=== PATIENT | female | born 1980 | race African-American/Black ===

== ENCOUNTER 2019-09-08 05:41 | Emergency (ER) | payer OTHER, SELFPAY ==
--- OUTSIDE RECORDS SUMMARY | 2019-09-08 05:43 | XMS REPORT ---
:1980 [facility] Address [address] Jung. [address] [place] [id number] Care Team Providers Name Role Phone Unavailable Unavailable Unavailable Problems This patient has no known problems. Allergies, Adverse Reactions, Alerts This patient has no known allergies or adverse reactions. Medications This patient has no known medications.
--- OUTSIDE RECORDS SUMMARY | 2019-09-08 05:43 | XMS REPORT | Summary of Care ---
:1980 Author Organization [facility] - Health Address [address] [place] [id number] Care Team Providers Name Role Phone Florentino Felix MD Primary Care Provider Reason for Visit Reason Comments Ear Pain Left Auth/Cert Status Reason Specialty Diagnoses / Referred By Referred To Procedures Contact Contact [facility] [address] [place] [address] [place] [address] Encounter Details Date Type Department Care Team Description 02/26/2019 Emergency [facility] Soledad Gilman, Acute suppurative otitis media of left ear without spontaneous rupture of tympanic membrane, recurrence not specified (Primary Dx); Department [employer]NA[employer] Otitis externa of left ear, unspecified chronicity, unspecified type [address] [place] [address] [address] [place] [address] [id number] [place], [place] [id number] Allergies No Known Allergiesdocumented as of this encounter (statuses as of 02/26/2019) Medications Medication Sig Dispensed Refills Start Date End Date Status amoxicillin 500 mg Take 1 30 capsule 0 02/26/2019 Active capsuleIndications: capsule by 9 Acute suppurative mouth 3 otitis media of left (three) times ear without daily for 10 spontaneous rupture days. of tympanic membrane, recurrence not specified ofloxacin 0.3 % otic Place 4 Drops 1 Bottle 0 02/26/2019 Active dropsIndications: in left ear 3 Otitis externa of (three) times left ear, unspecified daily. chronicity, unspecified type pantoprazole Take 1 Tab by 30 Tab 0 09/06/2015 Discontinued (PROTONIX) 40 mg EC mouth daily. 9 tablet cyclobenzaprine 5 mg Take 1 tablet 30 tablet 0 01/23/2017 Discontinued tablet by mouth 3 9 (three) times daily. traMADOL (ULTRAM) 50 Take 1 tablet 20 tablet 0 01/23/2017 Discontinued mg tablet by mouth 9 every 6 (six) hours as needed for Pain (scale 4-6). documented as of this encounter (statuses as of 02/26/2019) Active Problems No known active problemsdocumented as of this encounter (statuses as of 2018) Social History Tobacco Use Types Packs/Day Years Used Date Never Assessed Sex Assigned at Date Recorded Not on file Job Start Date Occupation Industry Not on file Not on file Not on file Travel History Travel Start Travel End No recent travel history available. documented as of this encounter Last Filed Vital Signs Vital Sign Reading Time Taken Comments Blood Pressure 134/89 02/26/2019 3:27 PM CDT Pulse 86 02/26/2019 3:27 PM CDT Temperature 36.7 C (98 F) 02/26/2019 3:27 PM CDT Respiratory Rate 18 02/26/2019 3:27 PM CDT Oxygen Saturation 99% 02/26/2019 3:27 PM CDT Inhaled Oxygen Concentration - - Weight 66.8 kg (147 lb 4.8 oz) 02/26/2019 3:27 PM CDT Height 162.6 cm (5' 4") 02/26/2019 3:27 PM CDT Body Mass Index 25.28 02/26/2019 3:27 PM CDT documented in this encounter Discharge Instructions Soledad Parsons NP - 02/26/2019Diagnosis: Left ear infection Do not use q-tips Avoid getting water in ear Prescriptions for amoxicillin and ofloxacin ear drops sent to [facility] pharmacy Follow up in the clinic May use ibuprofen or naprosyn for pain control documented in this encounter Plan of Treatment Health Maintenance Due Date Last Done Comments VARICELLA VACCINES (1 of 2 - 13+ 1994 2-dose series) DTaP,Tdap,and Td Vaccines (1 - 02/14/2000 Tdap) PAP SMEAR 2002 INFLUENZA VACCINE (#1) 2019 PNEUMOCOCCAL 0-64 YEARS COMBINED Aged Out No longer eligible based on SERIES patient's age to complete this topic documented as of this encounter Procedures Procedure Name Priority Date/Time Associated Diagnosis Comments NOTICE OF PRIVACY Routine 02/26/2019 3:17 PM CDT PRACTICES CONSENT/REFUSAL FOR Routine 02/26/2019 3:17 PM CDT DIAGNOSIS AND TREATMENT documented in this encounter Results Not on filedocumented in this encounter Visit Diagnoses Diagnosis Acute suppurative otitis media of left ear without spontaneous rupture of tympanic membrane, recurrence not specified - Primary Otitis externa of left ear, unspecified chronicity, unspecified type documented in this encounter Administered Medications Medication Order MAR Action Action Date Dose Rate Site ibuprofen (IBU) tablet 600 mg Given 02/26/2019 4:21 PM CDT 600 mg 600 mg, Oral, ONCE, 1 dose, Fri02/26/19 at 1700, LUIS ANGEL documented in this encounter
[2019-09-08 06:10] LABS: Absolute Lymphocytes (CBC) 0.7 K/uL (0.7-4.9); Basophils % 0.4 % (0-1.3); Hematocrit 39.7 % (36.0-45.0); MPV 8.8 fL (7.6-11.3); RBC Red Blood Cell Count 4.35 M/uL (3.86-4.86)
[2019-09-08] MEDS ORDERED: LORAZEPAM 1 MG TABLET ONE ×2 (06:54→07:27)
[2019-09-08 06:56] LABS: ALT/SGPT 48 U/L (12-78); AST/SGOT 58 U/L (15-37); Albumin 4.5 g/dL (3.4-5.0); Alkaline Phosphatase 40 U/L (45-117); BUN Blood Urea Nitrogen 11 mg/dL (7-18); Bicarbonate 21 mmol/L (21-32); Bilirubin Direct 0.2 mg/dL (0-0.2); Bilirubin Total 0.7 mg/dL (0.2-1.0); Glucose Level 122 mg/dL (74-106); Potassium 3.8 mmol/L (3.5-5.1); Protein, Total 8.8 g/dL (6.4-8.2); Sodium Level 139 mmol/L (136-145)
[2019-09-08 07:17] LABS: Blood Morphology Comment NOT SEEN (NOT SEEN); Platelet Estimate ADEQ; White Blood Cell Scan OK
[2019-09-08] MEDS ORDERED: NA CHLORIDE 0.9% 2,000 ML ONE (08:01)
--- NOTE | 2019-09-08 11:28 | EKG ---
Test Date: 2019-09-08 Test Time: 06:01:27 Maintenance Pipefitter: JAYME MEASUREMENT RESULTS: Intervals: Rate: 120 RI: 120 QRSD: 56 QT: 334 QTc: 472 [place]: P: 72 RI: 120 QRS: 61 T: 53 INTERPRETIVE STATEMENTS: Sinus tachycardia Anteroseptal infarct, age undetermined Abnormal ECG Compared to ECG 12/09/2014 09:09:14 Myocardial infarct finding now present Sinus rhythm no longer present Sinus arrhythmia no longer present Electronically Signed On 09-08-19 11:27:31 CDT by Hakeem Martin
[2019-09-08 11:57] LABS: Barbiturates NEGATIVE (NEGATIVE); Benzodiazepines NEGATIVE (NEGATIVE); Cocaine NEGATIVE (NEGATIVE); METHAMPHETAM NEGATIVE (NEGATIVE); Methadone NEGATIVE (NEGATIVE); Opiates NEGATIVE (NEGATIVE); Phencyclidine NEGATIVE (NEGATIVE); THC Cannibis POSITIVE (NEGATIVE)
[2019-09-08 13:05] LABS: Urine Blood TRACE (NEG); Urine Glucose NEGATIVE (NEG); Urine Protein 1+ (NEG); Urine Specific Gravity >1.030 (1.005-1.030)
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
[2019-09-08 16:53] VITALS: TEMP 98.1
[2019-09-08 17:02] VITALS: O2SAT 99
[2019-09-08 17:03] VITALS: BP 144/95
== END 2019-09-08 16:38 ==
LOC: ER 05:41
DX: F20.9 Schizophrenia, unspecified (principal); R44.3 Hallucinations, unspecified; F12.90 Cannabis use, unspecified, uncomplicated; Z72.89 Other problems related to lifestyle; F15.90 Other stimulant use, unspecified, uncomplicated
CPT/HCPCS: 96361; 93005; 85025; 80048; 36415; 80320; 80329 ×2; 81025; 85610; 80076; 80307 ×8; 85730; 81003; 96360; 99285; J7030

== ENCOUNTER 2020-02-04 17:01 | Emergency (ER) | payer OTHER ==
--- OUTSIDE RECORDS SUMMARY | 2020-02-04 17:02 | XMS REPORT | Continuity of Care Document ---
:1980 Author Organization [facility] Address [address] [place] [address] Care Team Providers Name Role Phone Kelsie Gilman NP Attending Clinician Problems This patient has no known problems. Allergies, Adverse Reactions, Alerts This patient has no known allergies or adverse reactions. Medications This patient has no known medications. Procedures This patient has no known procedures. Encounters Start End Encounter Admission Attending Care Care Encounter Source Date/Time Date/Time Type Type Clinicians Facility Department ID 2019-02-26 2019-02-26 Emergency [facility] [id number] 15:30:21 16:52:00 Soledad Tamayo [id number] Chloe [id number] [place] [id number] Results This patient has no known results.
[2020-02-04] MEDS ORDERED: ONDANSETRON 4 MG/2 ML VIAL ONE (17:45)
[2020-02-04] MEDS ORDERED: NA CHLORIDE 0.9% 1,000 ML ONE (17:46)
[2020-02-04] MEDS ORDERED: KETOROLAC 30 MG/ML INJ ONE (17:46)
[2020-02-04 18:09] LABS: Absolute Lymphocytes (CBC) 1.3 K/uL (0.7-4.9); Basophils % 0.8 % (0-1.3); Hematocrit 38.4 % (36.0-45.0); Lymphocytes % 13.9 % (15.3-44.8); MPV 8.5 fL (7.6-11.3)
[2020-02-04 18:13] LABS: Urine Blood NEGATIVE (NEG); Urine Glucose NEGATIVE (NEG); Urine Protein NEGATIVE (NEG); Urine pH 5.5 (5.0-7.0)
[2020-02-04 18:26] LABS: BUN Blood Urea Nitrogen 10 mg/dL (7-18); Bicarbonate 21 mmol/L (21-32); Glucose Level 114 mg/dL (74-106); Potassium 3.7 mmol/L (3.5-5.1); Sodium Level 138 mmol/L (136-145)
--- NOTE | 2020-02-04 18:38 | EDPHYS ---
Physician Documentation [facility] Name: Alycia Veronica Age: 39 yrs Sex: Female : 1980 Arrival Date: 02/04/2020 Time: 17:05 Bed 19 Private MD: ED Physician Zeferino Carrera HPI: 02/03 18:40 This 39 yrs old Black Female presents to ER via [employer] with complaints of kb Abdominal Pain. 18:40 The patient presents with abdominal pain that is diffuse. Onset: The symptoms/episode kb began/occurred yesterday. The symptoms do not radiate. Associated signs and symptoms: Pertinent positives: nausea, Pertinent negatives: constipation, diarrhea, fever, vomiting. The symptoms are described as constant. Modifying factors: The symptoms are alleviated by nothing, the symptoms are aggravated by nothing. Severity of pain: At its worst the pain was moderate in the emergency department the pain is unchanged. The patient has not experienced similar symptoms in the past. The patient has not recently seen a physician. Pt reports abd pain since last night, but got worse today after a "traumatic event." Pt in [facility] custody. 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 - Social history:: Smoking status: Patient denies any tobacco usage or history of. ROS: 18:39 Constitutional: Negative for fever, chills, and weight loss, Cardiovascular: Negative kb for chest pain, palpitations, and edema, Respiratory: Negative for shortness of breath, cough, wheezing, and pleuritic chest pain, Back: Negative for injury and pain, : Negative for injury, bleeding, discharge, and swelling, MS/Extremity: Negative for injury and deformity, Skin: Negative for injury, rash, and discoloration, Neuro: Negative for headache, weakness, numbness, tingling, and seizure. 18:39 Abdomen/GI: Positive for abdominal pain, nausea, Negative for vomiting, diarrhea, constipation. Exam: 18:39 Constitutional: This is a well developed, well nourished patient who is awake, alert, kb and in no acute distress. Head/Face: Normocephalic, atraumatic. Chest/axilla: Normal chest wall appearance and motion. Nontender with no deformity. No lesions are appreciated. Cardiovascular: Regular rate and rhythm with a normal S1 and S2. No gallops, murmurs, or rubs. Normal PMI, no JVD. No pulse deficits. Respiratory: Lungs have equal breath sounds bilaterally, clear to auscultation and percussion. No rales, rhonchi or wheezes noted. No increased work of breathing, no retractions or nasal flaring. Back: No spinal tenderness. No costovertebral tenderness. Full range of motion. Skin: Warm, dry with normal turgor. Normal color with no rashes, no lesions, and no evidence of cellulitis. MS/ Extremity: Pulses equal, no cyanosis. Neurovascular intact. Full, normal range of motion. Neuro: Awake and alert, GCS 15, oriented to person, place, time, and situation. Cranial nerves II-XII grossly intact. Motor strength 5/5 in all extremities. Sensory grossly intact. Cerebellar exam normal. Normal gait. 18:39 Abdomen/GI: Inspection: abdomen appears normal, Bowel sounds: normal, in all quadrants, Palpation: soft, in all quadrants, mild abdominal tenderness, in the left lower quadrant. Vital Signs: 17:08 BP 147 / 95; Pulse 100; Resp 17; Temp 98.7; Pulse Ox 99% ; Weight 63.5 kg; Height 5 ft. bp 5 in. (165.10 cm); 18:48 BP 130 / 79; Pulse 93; Resp 16; Pulse Ox 99% ; bp 17:08 Body Mass Index 23.30 (63.50 kg, 165.10 cm) bp MDM: 17:06 Patient medically screened. kb 18:37 Data reviewed: vital signs, nurses notes. Data interpreted: Pulse oximetry: on room air kb is 99 %. Interpretation: normal. Counseling: I had a detailed discussion with the patient and/or guardian regarding: the historical points, exam findings, and any diagnostic results supporting the discharge/admit diagnosis, lab results, the need for outpatient follow up, a family practitioner, to return to the emergency department if symptoms worsen or persist or if there are any questions or concerns that arise at home. Refusal of service: The patient/guardian displays adequate decision making capability and despite a detailed discussion of alternatives, benefits, risks, and consequences refuses: CT Scan. ED course: Pt refuses CT scan. Wants to leave. . 02/03 17:13 Order name: Basic Metabolic Panel 02/03 17:13 Order name: CBC with Diff kb 02/03 18:01 Order name: Urine Dipstick--Ancillary (enter results) 02/03 18:01 Order name: Urine --Ancillary (enter results) eb 02/03 18:14 Order name: Urine --Ancillary; Complete Time: 18:14 EDIL 02/03 18:14 Order name: Urine Dipstick-Ancillary; Complete Time: 18:14 EDIL 02/03 17:13 Order name: IV Saline Lock; Complete Time: 18:04 kb 02/03 17:13 Order name: Labs collected and sent; Complete Time: 18:04 kb 02/03 17:34 Order name: CT Abd/Pelvis - IV Contrast Only 02/03 18:27 Order name: Basic Metabolic Panel; Complete Time: 18:28 EDIL 02/03 18:28 Order name: CBC with Automated Diff; Complete Time: 18:28 EDIL 02/03 17:34 Order name: Urine Dipstick-Ancillary (obtain specimen); Complete Time: 18:04 kb 02/03 17:34 Order name: Urine Test (obtain specimen); Complete Time: 18:05 kb Administered Medications: 17:50 Drug: NS 0.9% 1000 ml Route: IV; Rate: 1000 ml; Site: right antecubital; bp 18:50 Follow up: IV Status: Completed infusion; IV Intake: 1000ml bp 17:50 Drug: TORadol - Ketorolac 15 mg Route: IVP; Site: right forearm; bp 18:49 Follow up: Response: No adverse reaction bp 17:50 Drug: Zofran (Ondansetron) 4 mg Route: IVP; Site: right forearm; bp 18:49 Follow up: Response: No adverse reaction bp Disposition: 02/04/20 18:37 Discharged to Law Enforcement. Impression: Lower abdominal pain, unspecified. - Condition is Stable. - Discharge Instructions: Abdominal Pain, Adult, [id number]. - Medication Reconciliation Form, Thank You Letter, Antibiotic Education, Prescription Opioid Use form. - Follow up: Emergency Department; When: As needed; Reason: Worsening of condition. Follow up: Private Physician; When: 2 - 3 days; Reason: Recheck today's complaints, Continuance of care, Re-evaluation by your physician. Addendum: 02/07/2020 11:13 Co-signature as Attending Physician, Zeferino Carrera MD I agree with the assessment and k dr plan of care. Signatures: Dispatcher [employer] EDMS Kamryn Shearer, YARD INSPECTOR-C YARD INSPECTOR-Ckb Zeferino Carrera MD MD [facility] Abraham Bennett, RN RN bp Corrections: (The following items were deleted from the chart) 02/03 18:37 18:37 02/04/2020 18:37 Discharged to Home. Impression: Lower abdominal pain, kb unspecified. Condition is Stable. Forms are Medication Reconciliation Form, Thank You Letter, Antibiotic Education, Prescription Opioid Use. Follow up: Emergency Department; When: As needed; Reason: Worsening of condition. Follow up: Private Physician; When: 2 - 3 days; Reason: Recheck today's complaints, Continuance of care, Re-evaluation by your physician. kb 18:40 18:39 Abdomen/GI: Inspection: abdomen appears normal, Bowel sounds: normal, in all kb quadrants, Palpation: soft, in all quadrants, moderate abdominal tenderness, in the left lower quadrant, kb 18:51 18:37 02/04/2020 18:37 Discharged to Law Enforcement. Impression: Lower abdominal pain, bp unspecified. Condition is Stable. Forms are Medication Reconciliation Form, Thank You Letter, Antibiotic Education, Prescription Opioid Use. Follow up: Emergency Department; When: As needed; Reason: Worsening of condition. Follow up: Private Physician; When: 2 - 3 days; Reason: Recheck today's complaints, Continuance of care, Re-evaluation by your physician. kb
--- NOTE | 2020-02-04 18:38 | ER ---
Nurse's Notes [facility] Name: Alycia Veronica Age: 39 yrs Sex: Female : 1980 Arrival Date: 02/04/2020 Time: 17:05 Bed 19 Private MD: Diagnosis: Lower abdominal pain, unspecified Presentation: 02/03 17:08 Chief complaint: Patient states: ABDOMINAL PAIN WITHOUT VOMITING OR DIARRHEA. bp Coronavirus screen: At this time, the client does not indicate any symptoms associated with coronavirus-19. Ebola Screen: No symptoms or risks identified at this time. Initial Sepsis Screen: Does the patient meet any 2 criteria? HR > 90 bpm. No. Patient's initial sepsis screen is negative. Does the patient have a suspected source of infection? No. Patient's initial sepsis screen is negative. Risk Assessment: Do you want to hurt yourself or someone else? Patient reports no desire to harm self or others. Onset of symptoms is unknown. 17:08 Method Of Arrival: Law Enforcement: [place] bp 17:08 Acuity: MELISSA 3 bp Triage Assessment: 17:12 General: Appears in no apparent distress. uncomfortable, obese, Behavior is bp cooperative, appropriate for age, agitated, anxious. Pain: Complains of pain in abdomen. EENT: No deficits noted. Neuro: No deficits noted. Cardiovascular: No deficits noted. Respiratory: No deficits noted. GI: Reports lower abdominal pain, upper abdominal pain, Patient currently denies diarrhea, vomiting. : No signs and/or symptoms were reported regarding the genitourinary system. Derm: No deficits noted. Musculoskeletal: No deficits noted. 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 - Social history:: Smoking status: Patient denies any tobacco usage or history of. Screenin:10 Abuse screen: Denies threats or abuse. Denies injuries from another. Nutritional bp screening: No deficits noted. Tuberculosis screening: No symptoms or risk factors identified. Fall Risk None identified. Assessment: 17:10 General: SEE TRIAGE NOTE. bp 18:03 Reassessment: PT CRYING/AGITATED WITH PD. IVF INFUSING. bp 18:36 Reassessment: PT INCREASINGLY LOUD AND AGITATED WITH PD AND STAFF, REFUSING CARE, bp SHOUTING "IF THEY ANY BLACK PEOPLE OUT THERE, HELP ME. BLACK LIVES MATTER.". 18:47 Reassessment: PT CONTINUING TO BE LOUD AND THREATENING TO STAFF AND PD, D/C WITH PD. bp Vital Signs: 17:08 BP 147 / 95; Pulse 100; Resp 17; Temp 98.7; Pulse Ox 99% ; Weight 63.5 kg; Height 5 ft. bp 5 in. (165.10 cm); 18:48 BP 130 / 79; Pulse 93; Resp 16; Pulse Ox 99% ; bp 17:08 Body Mass Index 23.30 (63.50 kg, 165.10 cm) bp ED Course: 17:05 Patient arrived in ED. iw 17:06 Kam[facility] She[facility]C [facility] kb 17:06 Zeferino Carrera MD is Attending Physician. kb 17:07 Abraham Bennett, BIJAL is Primary Nurse. bp 17:10 Patient has correct armband on for positive identification. Placed in gown. Bed in low bp position. Call light in reach. Side rails up X2. 17:12 Triage completed. bp 17:12 Arm band placed on. bp 17:37 Radiology exam delayed due to test not completed at this time. vm2 17:42 Radiology exam delayed due to IV insertion attempt and/or patient not having vm2 appropriate IV at this time. 17:50 Inserted saline lock: 20 gauge in right antecubital area, using aseptic technique. bp Blood collected. 18:47 No provider procedures requiring assistance completed. IV discontinued, intact, bp bleeding controlled, No redness/swelling at site. Pressure dressing applied. Administered Medications: 17:50 Drug: NS 0.9% 1000 ml Route: IV; Rate: 1000 ml; Site: right antecubital; bp 18:50 Follow up: IV Status: Completed infusion; IV Intake: 1000ml bp 17:50 Drug: TORadol - Ketorolac 15 mg Route: IVP; Site: right forearm; bp 18:49 Follow up: Response: No adverse reaction bp 17:50 Drug: Zofran (Ondansetron) 4 mg Route: IVP; Site: right forearm; bp 18:49 Follow up: Response: No adverse reaction bp Intake: 18:50 IV: 1000ml; Total: 1000ml. bp Outcome: 18:37 Discharge ordered by MD. connelly 18:47 Discharged to Law Enforcement bp 18:47 Condition: stable 18:47 Discharge instructions given to police, Instructed on discharge instructions, follow up and referral plans. Demonstrated understanding of instructions, follow-up care. 18:48 Discharged to Law Enforcement iw 18:48 Condition: good 18:51 Patient left the ED. bp Signatures: Kamryn Shearer, PAULINE-C AIRCRAFT INSTRUMENT MECHANIC-Aimee Spicer, RN RN Mari[facility] Abraham Bennett, RN RN bp
[2020-02-04 18:58] VITALS: TEMP 98.7; O2SAT 99
[2020-02-04 19:00] VITALS: BP 130/79
== END 2020-02-04 18:51 ==
LOC: ER 17:01
DX: R10.30 Lower abdominal pain, unspecified (principal); R11.0 Nausea; I10 Essential (primary) hypertension
CPT/HCPCS: 96361; 85025; 80048; 36415; 81025; 81003; 96375; 96374; 99283; J7030; J2405

== ENCOUNTER 2020-10-27 02:41 | Emergency (ER) | payer OTHER, SELFPAY ==
--- OUTSIDE RECORDS SUMMARY | 2020-10-27 02:43 | XMS REPORT | Continuity of Care Document ---
:1980 Author Organization [facility] t Address [address] [place] [address] Care Team Providers Name Role Phone Kelsie Gilman NP Attending Clinician Doctor Unassigned, Name Attending Clinician Unavailable Problems This patient has no known problems. Allergies, Adverse Reactions, Alerts This patient has no known allergies or adverse reactions. Medications This patient has no known medications. Procedures This patient has no known procedures. Encounters Start End Encounter Admission Attending Care Care Encounter Source Date/Time Date/Time Type Type Clinicians Facility Department ID 2020-10-24 2020-10-24 Emergency [facility] [id number] 11:11:00 15:37:00 Soledad Tamayo [id number] [place] [id number] [place] [id number] 2020-10-24 2020-10-24 Orders Doctor PELAYO [id number] 00:00:00 00:00:00 Only Unassigned, [place] [id number] [place] [facility] [id number] 2019-02-26 2019-02-26 Emergency [facility] [id number] 15:30:21 16:52:00 Soledad Tamayo [id number] [place] [id number] [place] [address] [phone] [id number] Results This patient has no known results.
[2020-10-27 05:10] LABS: Barbiturates NEGATIVE (NEGATIVE); Benzodiazepines NEGATIVE (NEGATIVE); Cocaine NEGATIVE (NEGATIVE); METHAMPHETAM NEGATIVE (NEGATIVE); Methadone NEGATIVE (NEGATIVE); Opiates NEGATIVE (NEGATIVE); Phencyclidine NEGATIVE (NEGATIVE); THC Cannibis POSITIVE (NEGATIVE)
[2020-10-27 05:19] LABS: Absolute Lymphocytes (CBC) 1.6 K/uL (0.7-4.9); Basophils % 0.7 % (0-1.3); Hematocrit 40.6 % (36.0-45.0); MPV 9.2 fL (7.6-11.3); RBC Red Blood Cell Count 4.35 M/uL (3.86-4.86)
[2020-10-27 05:25] LABS: Protime INR 0.95
[2020-10-27 05:51] LABS: ALT/SGPT 35 U/L (12-78); AST/SGOT 25 U/L (15-37); Albumin 4.4 g/dL (3.4-5.0); Alkaline Phosphatase 42 U/L (45-117); BUN Blood Urea Nitrogen 12 mg/dL (7-18); Bicarbonate 26 mmol/L (21-32); Bilirubin Direct 0.1 mg/dL (0-0.2); Bilirubin Total 0.6 mg/dL (0.2-1.0); Glucose Level 133 mg/dL (74-106); Potassium 3.2 mmol/L (3.5-5.1); Protein, Total 8.1 g/dL (6.4-8.2); Sodium Level 138 mmol/L (136-145)
--- NOTE | 2020-10-27 10:28 | EDPHYS ---
Physician Documentation [facility] Name: Alycia Veronica Age: 40 yrs Sex: Female : 1980 Arrival Date: 10/27/2020 Time: 02:51 Bed 16 Private MD: ED Physician Tristin Angel HPI: 10/27 05:41 This 40 yrs old Black Female presents to ER via Ambulatory with complaints of mental mh7 issues. 05:41 The patient presents to the emergency department with psychosis, has experienced mh7 auditory hallucinations. 05:42 Onset: The symptoms/episode began/occurred 4 day(s) ago. Past psychiatric history: mh7 Prior diagnosis: bipolar disorder, schizophrenia. Associated signs and symptoms: Pertinent positives; hallucinations, Pertinent negatives: abdominal pain, anxiety, chest pain, chills, delusions, depression, fever, headache, homicidal ideation, nausea, night sweats, palpitations, paranoia, shortness of breath, substance abuse, suicide ideation, tremor, vomiting. Severity of symptoms: At their worst the symptoms were moderate 3 day(s) ago, in the emergency department the symptoms are unchanged. The patient has experienced similar episodes in the past, several times. Historical: - Allergies: 03:11 Unable to obtain; jb4 - Home Meds: 03:11 Unable to obtain [Active]; jb4 - PMHx: 03:11 Anxiety; Bipolar disorder; Hypertension; Schizophrenia; jb4 - PSHx: 03:11 None; jb4 - Immunization history:: Adult Immunizations unknown. - Social history:: Smoking status: Patient reports the use of cigarette tobacco products, smokes one pack cigarettes per day. Patient uses alcohol, Patient/guardian denies using street drugs. ROS: 05:42 Constitutional: Negative for fever, chills, and weight loss, Eyes: Negative for injury, mh7 pain, redness, and discharge, ENT: Negative for injury, pain, and discharge, Neck: Negative for injury, pain, and swelling, Cardiovascular: Negative for chest pain, palpitations, and edema, Respiratory: Negative for shortness of breath, cough, wheezing, and pleuritic chest pain, Abdomen/GI: Negative for abdominal pain, nausea, vomiting, diarrhea, and constipation, Back: Negative for injury and pain, : Negative for injury, bleeding, discharge, and swelling, MS/Extremity: Negative for injury and deformity, Skin: Negative for injury, rash, and discoloration, Allergy/Immunology: Negative for hives, rash, and allergies, Endocrine: Negative for neck swelling, polydipsia, polyuria, polyphagia, and marked weight changes, Hematologic/Lymphatic: Negative for swollen nodes, abnormal bleeding, and unusual bruising. Exam: 05:42 Constitutional: This is a well developed, well nourished patient who is awake, alert, mh7 and in no acute distress. Head/Face: Normocephalic, atraumatic. Eyes: Pupils equal round and reactive to light, extra-ocular motions intact. Lids and lashes normal. Conjunctiva and sclera are non-icteric and not injected. Cornea within normal limits. Periorbital areas with no swelling, redness, or edema. Neck: Trachea midline, no thyromegaly or masses palpated, and no cervical lymphadenopathy. Supple, full range of motion without nuchal rigidity, or vertebral point tenderness. No Meningismus. Chest/axilla: Normal chest wall appearance and motion. Nontender with no deformity. No lesions are appreciated. Cardiovascular: Regular rate and rhythm with a normal S1 and S2. No gallops, murmurs, or rubs. Normal PMI, no JVD. No pulse deficits. Respiratory: Lungs have equal breath sounds bilaterally, clear to auscultation and percussion. No rales, rhonchi or wheezes noted. No increased work of breathing, no retractions or nasal flaring. Abdomen/GI: Soft, non-tender, with normal bowel sounds. No distension or tympany. No guarding or rebound. No evidence of tenderness throughout. Back: No spinal tenderness. No costovertebral tenderness. Full range of motion. Skin: Warm, dry with normal turgor. Normal color with no rashes, no lesions, and no evidence of cellulitis. MS/ Extremity: Pulses equal, no cyanosis. Neurovascular intact. Full, normal range of motion. Neuro: Awake and alert, GCS 15, oriented to person, place, time, and situation. Cranial nerves II-XII grossly intact. Motor strength 5/5 in all extremities. Sensory grossly intact. Cerebellar exam normal. Normal gait. 05:42 Psych: Behavior/mood is cooperative, Affect is flat, Oriented to person, place, time, Patient has no thoughts/intents to harm self or others. Judgement / Insight is normal. Memory is normal. Delusions/hallucinations are present and described as Hearing voices taking in her head without giving instructions. Vital Signs: 03:09 BP 174 / 92; Pulse 93; Resp 16; Temp 98.0(TE); Pulse Ox 100% on R/A; Weight 63.5 kg jb4 (R); Height 5 ft. 6 in. (167.64 cm) (R); Pain 10/10; 05:15 BP 173 / 103; Pulse 106; Resp 20; Pulse Ox 100% on R/A; jb4 06:15 BP 165 / 106; Pulse 99; Resp 19; Pulse Ox 100% on R/A; jb4 12:30 BP 155 / 99; Pulse 99; Resp 18 S; Pulse Ox 100% on R/A; ca1 15:38 BP 160 / 95; Pulse 95; Resp 18 S; Pulse Ox 100% on R/A; ca1 18:30 BP 158 / 93; Pulse 95; Resp 18 S; Pulse Ox 99% on R/A; ca1 20:24 BP 153 / 96; Pulse 91; Resp 18 S; Pulse Ox 99% on R/A; ca1 10/28 08:00 BP 158 / 99; Pulse 100; Resp 18; Temp 98.4(TE); Pulse Ox 100% on R/A; Pain 0/10; kg 15:44 BP 132 / 93; Pulse 95; Resp 18; Pulse Ox 95% on R/A; zb 16:30 BP 164 / 96; Pulse 97; Resp 16; Pulse Ox 99% on R/A; zb 17:30 BP 159 / 106; Pulse 100; Resp 18; Pulse Ox 100% on R/A; zb 18:21 BP 159 / 110; Pulse 95; Resp 16; Pulse Ox 99% ; zb 10/27 03:09 Body Mass Index 22.60 (63.50 kg, 167.64 cm) jb4 MDM: 10/27 10:10 Patient medically screened. [facility] 10/28 17:29 Differential diagnosis: depression, psychosis secondary to non-compliance. Data rn reviewed: vital signs, nurses notes, lab test result(s), and as a result, I will admit patient. Counseling: I had a detailed discussion with the patient and/or guardian regarding: the historical points, exam findings, and any diagnostic results supporting the discharge/admit diagnosis, lab results, the need to transfer to another facility, [facility] does not immediately have the required specialist. ED course: Pt accepted for transfer to multiple psychiatric facilities. Awaiting admin approval and transfer. . 10/27 04:28 Order name: Acetaminophen [facility] 10/27 04:28 Order name: Basic Metabolic Panel [facility] 10/27 04:28 Order name: CBC with Diff [facility] 10/27 04:28 Order name: ETOH Level [facility] 10/27 04:28 Order name: Hepatic Function [facility] 10/27 04:28 Order name: PT-INR [facility] 10/27 04:28 Order name: Ptt, Activated; Complete Time: 06:19 [facility] 10/27 04:28 Order name: Salicylate; Complete Time: 06:19 [facility] 10/27 04:28 Order name: Urine Drug Screen; Complete Time: 06:19 [facility] 10/27 04:29 Order name: Acetaminophen Level; Complete Time: 06:19 [facility] 10/27 04:29 Order name: Basic Metabolic Panel; Complete Time: 06:19 [facility] 10/27 04:29 Order name: CBC with Automated Diff; Complete Time: 06:19 [facility] 10/27 04:29 Order name: Alcohol Serum/Plasma; Complete Time: 06:19 [facility] 10/27 04:29 Order name: Liver (Hepatic) Function; Complete Time: 06:19 [facility] 10/27 04:28 Order name: EKG; Complete Time: 04:29 [facility] 10/27 04:28 Order name: EKG - Nurse/Tech; Complete Time: 05:01 [facility] 10/27 04:28 Order name: IV Saline Lock; Complete Time: 05:01 [facility] 10/27 04:29 Order name: Protime (+INR); Complete Time: 06:19 [facility] 10/27 05:37 Order name: Test, Serum; Complete Time: 06:19 jb4 10/27 08:09 Order name: Diet Regular; Complete Time: 08:09 eb 10/27 12:31 Order name: Diet Regular; Complete Time: 12:32 ca1 10/28 17:11 Order name: COVID-19 : Document "Date of Symptom Onset" if Symptomatic. zb 10/27 04:28 Order name: Labs collected and sent; Complete Time: 05:01 [facility] 10/27 04:28 Order name: Suicide Screening (Curt); Complete Time: mh7 Administered Medications: 10/27 10:27 Drug: Geodon (ziprasidone) 20 mg Route: IM; Site: left deltoid; aa5 11:30 Follow up: Response: No adverse reaction; Marked relief of symptoms; Anxiety decreased ca1 10:27 Drug: Ativan (LORazepam) 2 mg Route: IM; Site: right deltoid; aa5 11:30 Follow up: Response: No adverse reaction; Anxiety decreased ca1 20:09 Drug: Ativan (LORazepam) 2 mg Route: IM; Site: right deltoid; ca1 21:20 Follow up: Response: No adverse reaction; Marked relief of symptoms; Anxiety decreased ca1 10/28 00:29 Drug: Geodon 20 mg Route: PO; ea 01:04 Drug: Ativan (LORazepam) 2 mg Route: IM; Site: right deltoid; ea 07:20 Drug: Nicotine 21 mg/24 hr 1 patches {Note: applied to Left deltoid.} Route: kg Transdermal; Site: affected area; 08:19 Follow up: Response: No adverse reaction; Marked relief of symptoms kg 14:19 Drug: Geodon (ziprasidone) 10 mg Route: IM; Site: right deltoid; aa5 17:10 Follow up: Response: No adverse reaction; Anxiety decreased zb Disposition: 10/27/20 10:27 Transfer ordered to Psych Facility. Diagnosis are Bipolar disorder, Schizophrenia - Physcosis. - Reason for transfer: Higher level of care. - Accepting physician is to [facility] [place], [place] Dr. Velazquez. - Condition is Fair. - Problem is new. - Symptoms have improved. Signatures: Dispatcher [employer] EDMS Weston Quick MD MD cha Nieto, Roman, MD MD rn Calderon, Audri RN RN aa5 Florentino Grullon RN RN jb4 Jocelin Nelson RN RN ea Botello, Elizabeth eb Acob, Cheryl, RN RN ca1 Eric Nunez MD MD 7 Xena King RN RN zb Graham, Kristen kg Corrections: (The following items were deleted from the chart) 10/27 07:23 04:28 Urine Dipstick-Ancillary ordered. [facility] ll1 07:23 04:28 Urine Test ordered. 7 1 10/28 17:54 17:12 CORONAVIRUS ordered. EDMS EDMS 18:10/27 10:27 10/27/2020 10:27 Transfer ordered to Psych Facility. Diagnosis is Bipolar eb disorder; Schizophrenia - Physcosis. Reason for transfer: Higher level of care. Accepting physician is to Psych. Condition is Fair. Problem is new. Symptoms have improved. [facility] 10/28 18:24 18:01 10/27/2020 10:27 Transfer ordered to Psych Facility. Diagnosis is Bipolar zb disorder; Schizophrenia - Physcosis. Reason for transfer: Higher level of care. Accepting physician is to [facility] [place], [place] Dr. Velazquez. Condition is Fair. Problem is new. Symptoms have improved. eb
--- NOTE | 2020-10-27 10:28 | ER ---
Nurse's Notes [facility] Name: Alycia Veronica Age: 40 yrs Sex: Female : 1980 Arrival Date: 10/27/2020 Time: 02:51 Bed 16 Private MD: Diagnosis: Bipolar disorder;Schizophrenia-Physcosis Presentation: 10/27 03:09 Chief complaint: Patient states: I have a headache and I am hearing voices. They are jb4 not telling me to do anything. Coronavirus screen: Client denies travel out of the [place] in the last 14 days. At this time, the client does not indicate any symptoms associated with coronavirus-19. Ebola Screen: No symptoms or risks identified at this time. Initial Sepsis Screen: Does the patient meet any 2 criteria? No. Patient's initial sepsis screen is negative. Does the patient have a suspected source of infection? No. Patient's initial sepsis screen is negative. Risk Assessment: Do you want to hurt yourself or someone else? Patient reports no desire to harm self or others. Onset of symptoms was October 27, 2020. Transition of care: patient was not received from another setting of care. 03:09 Method Of Arrival: Ambulatory jb4 03:09 Acuity: MELISSA 3 jb4 Historical: - Allergies: 03:11 Unable to obtain; jb4 - Home Meds: 03:11 Unable to obtain [Active]; jb4 - PMHx: 03:11 Anxiety; Bipolar disorder; Hypertension; Schizophrenia; jb4 - PSHx: 03:11 None; jb4 - Immunization history:: Adult Immunizations unknown. - Social history:: Smoking status: Patient reports the use of cigarette tobacco products, smokes one pack cigarettes per day. Patient uses alcohol, Patient/guardian denies using street drugs. Screenin:15 Abuse screen: Denies threats or abuse. Nutritional screening: No deficits noted. jb4 Tuberculosis screening: No symptoms or risk factors identified. Fall Risk None identified. Assessment: 03:11 General: Appears in no apparent distress. comfortable, Behavior is calm, cooperative, jb4 appropriate for age. Pain: Complains of pain in headache. Pain does not radiate. Pain currently is 10 out of 10 on a pain scale. Neuro: Level of Consciousness is awake, alert, obeys commands, Oriented to person, place, situation. Cardiovascular: Patient's skin is warm and dry. Respiratory: Airway is patent Respiratory effort is even, unlabored, Respiratory pattern is regular, symmetrical. GI: No signs and/or symptoms were reported involving the gastrointestinal system. : No signs and/or symptoms were reported regarding the genitourinary system. EENT: No signs and/or symptoms were reported regarding the EENT system. Derm: Skin is intact, Skin is dry, Skin is normal, Skin temperature is warm. Musculoskeletal: Circulation, motion, and sensation intact. Range of motion: intact in all extremities. 04:00 Reassessment: Patient appears in no apparent distress at this time. Patient and/or jb4 family updated on plan of care and expected duration. Pain level reassessed. Patient is alert, oriented x 3, equal unlabored respirations, skin warm/dry/pink. 05:00 Reassessment: Patient appears in no apparent distress at this time. Patient and/or jb4 family updated on plan of care and expected duration. Pain level reassessed. Patient is alert, oriented x 3, equal unlabored respirations, skin warm/dry/pink. 06:20 Reassessment: Patient appears in no apparent distress at this time. Patient and/or jb4 family updated on plan of care and expected duration. Pain level reassessed. Patient is alert, oriented x 3, equal unlabored respirations, skin warm/dry/pink. 10:00 Reassessment: Patient appears in no apparent distress at this time. Patient is alert, ca1 oriented x 3, equal unlabored respirations, skin warm/dry/pink. Pt pacing. Asked to stay in her room. Pt kept asking for the phone to call family. General: Appears uncomfortable, Behavior is agitated, anxious, restless. 10:31 Reassessment: Pt agitated, anxious, restless, pacing in ER hallway, [facility] lot multiple times and walked back to ER Room 16 from 1000 to 1015. Pt screaming "Where are you?", and pt states "my son just , I need to go". Pt was escorted by Security to ER room 16. Dr. Quick at bedside. Pt gave me her sister's phone number [phone] at 1031 and requested for me to call her. Called pt's sister and notified pt is currently in ER, pt's sister reports pt's statement that her son just passed is not true and reports she will come see pt later today. . 10:52 Reassessment: Patient appears in no apparent distress at this time. Patient is alert, ca1 oriented x 3, equal unlabored respirations, skin warm/dry/pink. Eyes closed. Resting at this time. General: Behavior is drowsy. 11:49 Reassessment: Patient appears in no apparent distress at this time. No changes from ca1 previously documented assessment. 12:40 Reassessment: Patient appears in no apparent distress at this time. No changes from ca1 previously documented assessment. 13:30 Reassessment: Patient appears in no apparent distress at this time. No changes from ca1 previously documented assessment. 14:00 Reassessment: Family at bedside. ca1 14:36 Reassessment: Patient appears in no apparent distress at this time. No changes from ca1 previously documented assessment. 15:35 Reassessment: Patient appears in no apparent distress at this time. Patient and/or ca1 family updated on plan of care and expected duration. Pain level reassessed. Patient is alert, oriented x 3, equal unlabored respirations, skin warm/dry/pink. 16:35 Reassessment: Patient appears in no apparent distress at this time. Patient is alert, ca1 oriented x 3, equal unlabored respirations, skin warm/dry/pink. 17:30 Reassessment: Patient appears in no apparent distress at this time. Patient and/or ca1 family updated on plan of care and expected duration. Pain level reassessed. Patient is alert, oriented x 3, equal unlabored respirations, skin warm/dry/pink. 18:30 Reassessment: Patient appears in no apparent distress at this time. Patient and/or ca1 family updated on plan of care and expected duration. Pain level reassessed. Patient is alert, oriented x 3, equal unlabored respirations, skin warm/dry/pink. 19:30 Reassessment: Patient appears in no apparent distress at this time. Patient and/or ca1 family updated on plan of care and expected duration. Pain level reassessed. Patient is alert, oriented x 3, equal unlabored respirations, skin warm/dry/pink. General: mother at bedside. General: Appears. 10/28 03:06 Reassessment: Patient and/or family updated on plan of care and expected duration. Pain ea level reassessed. Pt resting with eyes closed, respirations even and unlabored. 13:32 Reassessment: ecp at bedside to discuss care with mother and patient. mother currently zb out of the room attempted to call number on file no answer at this time. 13:35 Reassessment: Reached patient's mother notified patient that provider needed to speak zb with her. mother stated that she would arrived around 1414. 14:10 Reassessment: Pt agitated, pt pacing back and forth from ER room 16 to [facility]. MD was aa5 notified. . 14:50 Reassessment: ecp at bedside discussing care with mother and patient. zb 15:43 Reassessment: Patient appears in no apparent distress at this time. spoke to mother zb states patient has insurance call registration and asked them to verify. mother remains at bedside. patient appears to be sleeping at this point. 16:16 Reassessment: Patient appears in no apparent distress at this time. Mother at bedside. zb patient appears to be sleeping no issues at this time. 18:00 Reassessment: notified MD of increased blood pressure. PER md no medications ordered a zb this time. 18:21 Reassessment: REPORT given to [facility]. Patient being wheeled out. mother at zb bedside. Vital Signs: 10/27 03:09 BP 174 / 92; Pulse 93; Resp 16; Temp 98.0(TE); Pulse Ox 100% on R/A; Weight 63.5 kg jb4 (R); Height 5 ft. 6 in. (167.64 cm) (R); Pain 10/10; 05:15 BP 173 / 103; Pulse 106; Resp 20; Pulse Ox 100% on R/A; jb4 06:15 BP 165 / 106; Pulse 99; Resp 19; Pulse Ox 100% on R/A; jb4 12:30 BP 155 / 99; Pulse 99; Resp 18 S; Pulse Ox 100% on R/A; ca1 15:38 BP 160 / 95; Pulse 95; Resp 18 S; Pulse Ox 100% on R/A; ca1 18:30 BP 158 / 93; Pulse 95; Resp 18 S; Pulse Ox 99% on R/A; ca1 20:24 BP 153 / 96; Pulse 91; Resp 18 S; Pulse Ox 99% on R/A; ca1 10/28 08:00 BP 158 / 99; Pulse 100; Resp 18; Temp 98.4(TE); Pulse Ox 100% on R/A; Pain 0/10; kg 15:44 BP 132 / 93; Pulse 95; Resp 18; Pulse Ox 95% on R/A; zb 16:30 BP 164 / 96; Pulse 97; Resp 16; Pulse Ox 99% on R/A; zb 17:30 BP 159 / 106; Pulse 100; Resp 18; Pulse Ox 100% on R/A; zb 18:21 BP 159 / 110; Pulse 95; Resp 16; Pulse Ox 99% ; zb 10/27 03:09 Body Mass Index 22.60 (63.50 kg, 167.64 cm) jb4 ED Course: 10/27 02:51 Patient arrived in ED. es 03:09 Florentino Grullon, RN is Primary Nurse. jb4 03:10 Triage completed. jb4 03:11 Arm band placed on right wrist. jb4 03:15 Patient has correct armband on for positive identification. Bed in low position. Call jb4 light in reach. Side rails up X 1. Pulse ox on. NIBP on. 03:44 Eric Nunez MD is Attending Physician. [facility] 07:22 No provider procedures requiring assistance completed. Patient did not have IV access ll1 during this emergency room visit. 09:11 Diet: Patient given a regular meal tray. Tolerated well. em1 10:10 Attending Physician role handed off by Eric Nunez MD [facility] 10:10 Weston Quick MD is Attending Physician. [facility] 10/28 16:28 connected the Bernice Rn from [facility] with Adilson Martinez for patient transfer eb consultation. 16:30 Report given to BIJAL Blas. zb 17:02 connected the psychiatrist front office representative for [facility] with Dr. Angel for patient eb transfer consultation. 17:11 connected Ryland fulton nurse from [facility] with Adilson Martinez for patient transfer eb consultation. 17:22 connected Florencia Martinez from [facility] with Tonia Martinez for patient transfer eb consultation. 17:25 Report given to Report given to Gurwinder Evangelista states that they will do a EFC if zb doc-to-doc needed he advised us to call back. Stated that they would accept the patient. 17:29 Attending Physician role handed off by Weston Quick MD rn 17:29 Tristin Angel MD is Attending Physician. rn 17:44 administrative approval given by Arielle King/ Patient has been accepted to [facility] Gregory/ Dr. Adis Mohr Caroline has accepted the patient in transfer. Administered Medications: 10/27 10:27 Drug: Geodon (ziprasidone) 20 mg Route: IM; Site: left deltoid; aa5 11:30 Follow up: Response: No adverse reaction; Marked relief of symptoms; Anxiety decreased ca1 10:27 Drug: Ativan (LORazepam) 2 mg Route: IM; Site: right deltoid; aa5 11:30 Follow up: Response: No adverse reaction; Anxiety decreased ca1 20:09 Drug: Ativan (LORazepam) 2 mg Route: IM; Site: right deltoid; ca1 21:20 Follow up: Response: No adverse reaction; Marked relief of symptoms; Anxiety decreased ca1 10/28 00:29 Drug: Geodon 20 mg Route: PO; ea 01:04 Drug: Ativan (LORazepam) 2 mg Route: IM; Site: right deltoid; ea 07:20 Drug: Nicotine 21 mg/24 hr 1 patches {Note: applied to Left deltoid.} Route: kg Transdermal; Site: affected area; 08:19 Follow up: Response: No adverse reaction; Marked relief of symptoms kg 14:19 Drug: Geodon (ziprasidone) 10 mg Route: IM; Site: right deltoid; aa5 17:10 Follow up: Response: No adverse reaction; Anxiety decreased zb Outcome: 10/27 07:22 Discharged to home ambulatory. ll1 AMA AMA form signed Condition: stable Instructed on AMA form Demonstrated understanding of AMA form/instructions 10:27 ER care complete, transfer ordered by MD. stock 10/28 18:23 Transferred by ground EMS zb Condition: stable Instructed on the need for transfer, Demonstrated understanding of instructions. 18:24 Patient left the ED. zb Signatures: Weston Quick MD MD cha Salyer, Edna es Nieto, Roman, MD MD rn Martinez, Eric em1 Tonia Carroll, RN RN aa5 Florentino Grullon RN RN jb4 Jocelin Nelson RN RN ea Botello, Elizabeth eb Acob, Cheryl RN RN ca1 Lashae Blandon RN RN ll1 Eric Nunez MD MD 7 Reddy Mendieta tt3 Xena King RN RN Nevin Purcell kg Corrections: (The following items were deleted from the chart) 10/27 10:30 10:00 Geodon (ziprasidone) 20 mg IM in left deltoid aa5 aa5 10:42 10:31 Reassessment: Pt agitated, anxious, restless, pacing in ER hallway, pt went aa5 outside to ER lobby and ER parking lot multiple times and walked back to ER Room 16. Pt screaming "Where are you?", and pt states "my son just , I need to go". Pt was escorted by Security to ER room 16. Dr. Quick at bedside. Pt gave me her sister's phone number [phone] and requested for me to call her. Called pt's sister and notified pt is currently in ER, pt's sister reports pt's statement that her son just passed is not true and reports she will come see pt later today. . aa5 10/28 11:24 called the [place] [employer] to page out the service cashier. eb eb 10/28 09:25 initiated a transfer with Awilda from the [facility] eb eb 10/28 10:00 Awilda from the [facility] called to decline the patient eb in transfer due to being at capacity. eb 10/28 10:01 initiated a transfer with Zoey Mulligan Rn from the [facility]. ebeb 10/28 10:10 administrative approval given by Zoey Mulligan Rn/ Patient has been eb accepted to [facility]/ Liz Davidson has accepted the patient in transfer/ report to be called to [phone] eb 10/28 19:48 Followed up with Parish at [facility], stated he would get in eb touch with Zoey Mulligan and call back. Stated he could not find any documentation on the pt. tt3 10/28 11:22 10:30 BP 127 / 84; Pulse 76bpm; Resp 18bpm; Pulse Ox 98% RA; kg kg 11:22 11:15 LMP N/A - Hysterectomy kg kg
[2020-10-27] MEDS ORDERED: ZIPRASIDONE MESYLA 20 MG/VIAL IM ONE (10:41)
[2020-10-27] MEDS ORDERED: WATER FOR INJ,STERILE 10 ML ONE (10:41)
[2020-10-27] MEDS ORDERED: LORazepam 2 MG/ML VIAL ONE ×2 (10:41→20:24)
[2020-10-27] MEDS ORDERED: ZIPRASIDONE 20 MG CAP ONE (20:15)
[2020-10-28] MEDS ORDERED: LORazepam 2 MG/ML VIAL ONE (01:18)
--- NOTE | 2020-10-28 07:25 | EKG ---
Test Date: 2020-10-27 Test Time: 04:56:30 [employer] Developer: KEANU MEASUREMENT RESULTS: Intervals: Rate: 108 ME: 114 QRSD: 78 QT: 362 QTc: 485 Lucien: P: 76 ME: 114 QRS: 58 T: 58 INTERPRETIVE STATEMENTS: Sinus tachycardia Otherwise normal ECG Compared to ECG 09/08/2019 06:01:27 Myocardial infarct finding no longer present Electronically Signed On 10-28-20 07:22:13 CDT by Nils Arreola
[2020-10-28] MEDS ORDERED: NICOTINE 21 MG/PAT TD ONE (07:33)
[2020-10-28] MEDS ORDERED: ZIPRASIDONE MESYLA 20 MG/VIAL IM ONE (14:26)
[2020-10-28] MEDS ORDERED: WATER FOR INJ,STERILE 10 ML ONE (14:27)
[2020-10-28 18:44] VITALS: TEMP 98.4
[2020-10-28 18:50] VITALS: BP 159/110; O2SAT 99
== END 2020-10-28 18:24 ==
LOC: ER 02:41
DX: F20.9 Schizophrenia, unspecified (principal); F31.9 Bipolar disorder, unspecified; Z20.822 Contact with and (suspected) exposure to COVID-19; I10 Essential (primary) hypertension; F17.210 Nicotine dependence, cigarettes, uncomplicated
CPT/HCPCS: 93005; 85025; 80048; 36415; 80320; 80329 ×2; 84703; 85610; 80076; 80307 ×8; 85730; 96372; 99285; U0003; J3486 ×2

== ENCOUNTER 2021-11-07 10:28 | Emergency (ER) | payer OTHER ==
--- OUTSIDE RECORDS SUMMARY | 2021-11-07 10:32 | XMS REPORT | Continuity of Care Document ---
:[address] [facility] t Address [address] [place] [address] Care Team Providers Name Role Phone Kelsie Gilman NP Attending Clinician Doctor Unassigned, Name Attending Clinician Unavailable Payers Payer Name Policy Type Policy Number Effective Date Expiration Date S [facility] MEDICARE PART A [id number] 2004 00:00:00 MEDICAID SSI PENDING 2020 PENDING 00:00:00 Problems Condition Condition Condition Status Onset Resolution Last Treating Co mments Source Name Details Category Date Date Treatment Clinician Date No known No known Disease NPI:1 83 active active [id number] problems problems Allergies, Adverse Reactions, Alerts Allergy Allergy Status Severity Reaction(s) Onset Inactive Treating Comm ents Source Name Type Date Date Clinician NO KNOWN Drug Active NPI:183 ALLERGIE Class [id number] S Social History Social Habit Start Date Stop Date Quantity Comments Source Exposure to Not sure NPI:[id number] SARS-CoV-2 (event) Sex Ass[birth year] At [birth year] NPI:[id number] 00:00:00 00:00:00 Smoking Status Start Date Stop Date Source Unknown if ever smoked NPI:[id number] Medications Ordered Filled Start Stop Current Ordering Indication Dosage Frequency Signature Comments Components Source Medication Medication Date Date Medication? 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 I:183 (NICODERM) 4- } Topical, 76940 81 14 mg/24 hr 21:00: Administer patch 1 00 over 24 Patch Hours, Q24H, First dose on Fri10/24/20 at 1600, Until Discontinu ed, Routine LORazepam No 1mg 1 mg, Slow N PI:183 (ATIVAN) 10-24 IV Push, 790362 1 injection 1 18:15: 17:14 ONCE, 1 mg 00 :00 dose, Fri10/24/20 at 1315, STAT ibuprofen 2018- No 600mg 600 mg, NPI :183 (IBU) 02-26 Oral, 9234468 tablet 600 22:00: 21:21 ONCE, 1 mg 00 :00 dose, Fri02/26/19 at 1700, LUIS ANGEL ofloxacin 2018- Yes [id number] 4[drp] Place 4 NPI:183 0.3 % otic 8-30 57623 Drops in 1318 781 drops 00:00: left ear 3 00 (three) times daily. ofloxacin 2018- Yes [id number] 4[drp] Place 4 NPI:183 0.3 % otic 8-30 67993 Drops in 1318 781 drops 00:00: left ear 3 00 (three) times daily. ofloxacin Yes [id number] 4[drp] Place 4 NPI:183 0.3 % otic 8-30 09698 Drops in 1318 781 drops 00:00: left ear 3 00 (three) times daily. amoxicillin 2019- No [id number] 500mg Take 1 NPI:183 500 mg 02-26 capsule by 614000 1 capsule 00:00: 04:59 mouth 3 00 :00 (three) times daily for 10 days. cyclobenzap 2019- No 5mg Take 1 NPI :183 rine 5 mg 01-23 tablet by 1318 781 tablet 00:00: 00:00 mouth 3 00 :00 (three) times daily. traMADOL 2018- No 50mg Take 1 NPI:18 3 (ULTRAM) 50 01-23 tablet by 13 56697 mg tablet 00:00: 00:00 mouth 00 :00 every 6 (six) hours as needed for Pain (scale 4-6). pantoprazol 2018- No 40mg Take 1 Tab NPI:183 e 09-05 by mouth [id number] (PROTONIX) 00:00: 00:00 daily. 40 mg EC 00 :00 tablet Vital Signs Vital Name Observation Time Observation Value Comments Source Systolic blood pressure 2020-10-24 19:05:00 148 mm[Hg] Diastolic blood 2020-10-24 19:05:00 97 mm[Hg] NPI:1 [id number] pressure Body temperature 2020-10-24 19:05:00 37.39 Stephanie Respiratory rate 2020-10-24 19:05:00 20 /min Oxygen saturation in 2020-10-24 19:05:00 98 /min Arterial blood by Pulse oximetry Heart rate 2020-10-24 16:17:21 111 /min NPI:1831 [id number] Body weight 2020-10-24 16:07:00 58.968 kg NPI:1831 [id number] BMI 2020-10-24 16:07:00 22.31 kg/m2 NPI:1831 [id number] Systolic blood pressure 2020-10-24 19:05:00 148 mm[Hg] Diastolic blood 2020-10-24 19:05:00 97 mm[Hg] NPI:1 [id number] pressure Body temperature 2020-10-24 19:05:00 37.39 Stephanie Respiratory rate 2020-10-24 19:05:00 20 /min Oxygen saturation in 2020-10-24 19:05:00 98 /min Arterial blood by Pulse oximetry Heart rate 2020-10-24 16:17:21 111 /min NPI:1831 [id number] Body weight 2020-10-24 16:07:00 58.968 kg NPI:1831 616871 BMI 2020-10-24 16:07:00 22.31 kg/m2 NPI:1831 [id number] Systolic blood pressure 2019-02-26 20:27:00 134 mm[Hg] Diastolic blood 2019-02-26 20:27:00 89 mm[Hg] NPI:1 [id number] pressure Heart rate 2019-02-26 20:27:00 86 /min NPI:1831 [id number] Body temperature 2019-02-26 20:27:00 36.67 Stephanie Respiratory rate 2019-02-26 20:27:00 18 /min Body height 2019-02-26 20:27:00 162.6 cm NPI:1831 [id number] Body weight 2019-02-26 20:27:00 66.815 kg NPI:1831 [id number] BMI 2019-02-26 20:27:00 25.28 kg/m2 NPI:1831 [id number] Oxygen saturation in 2019-02-26 20:27:00 99 /min Arterial blood by Pulse oximetry Systolic blood pressure 2019-02-26 20:27:00 134 mm[Hg] Diastolic blood 2019-02-26 20:27:00 89 mm[Hg] NPI:1 [id number] pressure Heart rate 2019-02-26 20:27:00 86 /min NPI:1831 121641 Body temperature 2019-02-26 20:27:00 36.67 Stephanie Respiratory rate 2019-02-26 20:27:00 18 /min Body height 2019-02-26 20:27:00 162.6 cm NPI:1831 219605 Body weight 2019-02-26 20:27:00 66.815 kg NPI:1831 525800 BMI 2019-02-26 20:27:00 25.28 kg/m2 NPI:1831 365825 Oxygen saturation in 2019-02-26 20:27:00 99 /min Arterial blood by Pulse oximetry Procedures Procedure Date / Time Performed Performing Clinician [facility] e POCT TEST 2020-10-24 17:15:00 Soledad Gilman NPI:365 [id number] THYROID STIMULATING 2020-10-24 17:10:00 Soledad Gilman NPI:125 [id number] HORMONE HEPATIC FUNCTION PANEL 2020-10-24 17:10:00 Soledad Gilman ([id number]) (ALB,T.PRO,BILI T,BU/BC,ALT,AST,ALK PHOS) BASIC METABOLIC PANEL (NA, 2020-10-24 17:10:00 Soledad Gilman K, CL, CO2, GLUCOSE, BUN, CREATININE, CA) SALICYLATE 2020-10-24 17:10:00 Soledad Gilman NPI:[id number] ETHANOL 2020-10-24 17:10:00 Soledad Gilman NPI:[id number] CBC WITH DIFF 2020-10-24 17:10:00 Soledad Gilman NPI:[id number] URINE DRUG (IMMUNOASSAY) - 2020-10-24 16:56:00 Soledad Gilman COMPREHENSIVE DRUG SCREEN URINALYSIS 2020-10-24 16:56:00 Soledad Gilman NPI:[id number] CONSENT/REFUSAL FOR 2020-10-24 15:47:56 Doctor Unassigned, No MUSIC DEPARTMENT CHAIR I:[id number] DIAGNOSIS AND TREATMENT Name NOTICE OF PRIVACY 2019-02-26 20:17:32 Doctor Unassigned, No PRACTICES Name CONSENT/REFUSAL FOR 2019-02-26 20:17:18 Doctor Unassigned, No MUSIC DEPARTMENT CHAIR I:[id number] DIAGNOSIS AND TREATMENT Name Encounters Start End Encounter Admission Attending Care Care Encounter Source Date/Time Date/Time Type Type Clinicians Facility Department ID 2020-10-24 2020-10-[address] [facility] ERT [id number] NPI:183 16:34:00 17:00:00 [id number] 2020-10-24 2020-10-24 Emergency [facility] [id number] 11:11:00 15:37:00 Soledad Tamayo 350.1.13.10 [place] 4.2.7.2.686 [place] [facility] [id number] 2020-10-24 2020-10-24 Emergency [facility] [id number] NPI:183 11:11:00 15:37:00 Soledad Tamayo 350.1.13.10 [id number] [place] 4.2.7.2.686 [place] [address] [id number] 2020-10-24 2020-10-[address] [facility] ERT [id number] NPI:183 10:48:00 10:48:00 [id number] 2020-10-24 2020-10-24 Orders Doctor GITA [id number] 00:00:00 00:00:00 Only Unassigned, [place] 350.1.13.[address] [place] [address] [id number] 2020-10-24 2020-10-24 Orders Doctor GITA [id number] NPI:183 00:00:00 00:00:00 Only Unassigned, [place] 350.1.13.10 [id number] [place] [id number] [id number] 2019-02-26 2019-02-26 Emergency [facility] [id number] NPI:183 15:30:21 16:52:00 Soledad Iglesias Roni 350.1.13.10 [id number] [place] 4.2.7.2.686 [place] [id number] 2019-02-26 2019-02-26 Emergency [facility] [id number] 15:30:21 16:52:00 Soledad Alexandraton 350.1.13.10 [place] 4.2.7.2.686 [place] [address] [id number] Results Test Description Test Time Test Comments Results Result Comments Source DRUG PANEL 2 URINE 2020-10-24 18:57:06 Test Item Value Reference Range Interpretation Comme nts AMPHET (test code = 0806435800) Negative Negative TIGIST U (test code = 4879964939) Negative Negative BENZO U (test code = 1733557494) Negative Negative Cocaine Metabolite (test code = Negative Negative 3368069284) METHADONE (test code = 9327425796) Negative Negative OPIATES (test code = 4942944404) Negative Negative PCP (test code = 1786608220) Negative Negative THC (test code = 9236167102) Presumptive Positive Negative A GLENN (test code = GLENN) Urine Drug Cutoff Ranges Cocaine: ? 150 ng/mLBenzodiazepines: ? ? 200 ng/mLMethadone: ? 300 ng/mLAmphetamine: ? 1,000 ng/mLOpiates: ? 300 ng/mLCannabinoids: ?50 ng/mLPhencyclidine: ? ? ? 25 ng/mLBarbiturates: ?200 ng/mL The results are to be used only for medical (i.e., treatment) purposes. Unconfirmed screening results must not be used for non-medical purposes (e.g., employment testing, legal testing). Lab Interpretation (test code = Abnormal 36045-9) NPI:[id number] STIMULATING [id number] 18:45:09 Test Item Value Reference Range Interpretation Comments TSH (test code = See_Comment [Automated message] 5292711949) The system [employer] generated this result transmitted ref erence range: 0.45 - 4 .70 mIU/L. The refe rence range was not u sed to interpret this result as normal/abnor mal. Lab Interpretation (test Normal code = 43114-7) NPI:[id number] 18:22:06 Test Item Value Reference Range Interpretation Comments ALCOHOL (test code = <10 mg/dL 7062315647) GLENN (test code = GLENN) <10 Smdibucz90-849 Toxic>100 Depression of PATTERN GRADER>400 Fatalities Reported NPI:[id number] 18:22:06 Test Item Value Reference Range Interpretation Comments ACETAMINOP (test code = <10.0 10.0-30.0 L 2404041542) GLENN (test code = GLENN) Toxic: Greater than 200 ug/mL @ 4 hour post ingestion or greater than 50 ug/mL @ 12 hour post ingestion Lab Interpretation (test Abnormal code = 79385-2) NPI:[id number] 18:22:06 Test Item Value Reference Range Interpretation Comments SALICYLATE (test code <10 mg/L = 6602408395) GLENN (test code = GLENN) Therapeutic Range: ? Analgesic and Antipyretic Use ? 20-100 mg/L ? ? Anti-Inflammatory Use ? 100-250 mg/L Toxic Range: ? Greater than 300 mg/L NPI:[id number] Function Panel (ALB, T.PRO, BILI T, BU/BC, ALT, AST, ALK PHOS)2020-10-24 18:14:16 Test Item Value Reference Range Interpretation Comments TOTAL BILI (test code = 6290725450) 1.0 mg/dL 0.1-1.1 BILI UNCON (test code = 5474837297) 0.8 mg/dL 0.1-1.1 BILI CONJ (test code = 4859615254) 0.0 mg/dL 0.0-0.3 T PROTEIN (test code = 4473226424) 8.3 g/dL 6.3-8.2 H ALBUMIN (test code = 9981339621) 5.2 g/dL 3.5-5.0 H ALK PHOS (test code = 7339033054) 49 U/L 34-122 ALTv (test code = 1742-6) 34 U/L 5-35 AST(SGOT) (test code = 2881992547) 42 U/L 13-40 H Lab Interpretation (test code = Abnormal 71143-8) NPI:[id number] Metabolic Panel (NA, K, CL, CO2, GLUCOSE, BUN, CREATININE, CA)2020-10-24 18:13:56 Test Item Value Reference Range Interpretation Comments NA (test code = 136 mmol/L 135-145 5853279072) K (test code = 3.9 mmol/L 3.5-5.0 0480784427) CL (test code = 99 mmol/L 98-108 6724209039) CO2 TOTAL (test code 26 mmol/L 23-31 = 5368997449) AGAP (test code = 2-16 5909019504) BUN (test code = 8 mg/dL 7-23 2368050722) GLUCOSE (test code = 104 mg/dL 70-110 1188596670) CREATININE (test code 0.75 mg/dL 0.50-1.04 = 4311546217) CALCIUM (test code = 10.5 mg/dL 8.6-10.6 1042786945) eGFR (test code = mL/min/1.73m2 9207203305) GLENN (test code = GLENN) Association of Glomerular Filtration Rate (GFR) and Staging of Kidney Disease* + + +- +| GFR (mL/min/1.73 m2) ?| With Kidney Damage ?| ?Without Kidney Damage+ ------+ ----+ ------+| ?>90 ?| ?Stage one ?| ? Normal ?+ -+ + -+| ?60-89 ?| ?Stage two ?| ? Decreased GFR ? + + +- +| ?30-59 ?| ?Stage three ?| ? Stage three ? + + +- +| ?15-29 ?| ?Stage four ? | ? Stage four ?+ -+ + -+| ?<15 (or dialysis) ? ?| ?Stage five ? | ? Stage five ?+ -+ + -+ *Each stage assumes the associated GFR level has been in effect for at least three months. ?Stages 1 to 5, with or without kidney disease, indicate chronic kidney disease. Notes: Determination of stages one and two (with eGFR >59mL/min/1.73 m2) requires estimation of kidney damage for at least three months as defined by structural or functional abnormalities of the kidney, manifested by either:Pathological abnormalities or Markers of kidney damage (including abnormalities in the composition of the blood or urine or abnormalities in imaging tests). NPI:[id number] 17:58:39 Test Item Value Reference Range Interpretation Comments APPEARANCE (test code = Cloudy Clear A 6471264611) COLOR (test code = Em Yellow A 8717774190) PH (test code = 4.8-8.0 4063378041) SP GRAVITY (test code = 1.003-1.030 7675196055) GLU U QUAL (test code = Normal Normal 5390679026) BLOOD (test code = 1+ Negative A 9638561976) KETONES (test code = 5 mg/dL Negative A 7064467523) PROTEIN (test code = 100 mg/dL Negative A 2887-8) UROBILIN (test code = 2.0 mg/dL Normal A 8477611135) BILIRUBIN (test code = Negative Negative 7176647224) NITRITE (test code = Negative Negative 3488766634) LEUK JERROD (test code = Negative Negative 6369434746) RBC/HPF (test code = See_Comment H [Autom ated message] 5209534325) The system [employer] generated this result transmit rey reference range : 0 - 3 HPF. The refe rence range was not u sed to interpret th is result as normal/abnormal . WBC/HPF (test code = See_Comment H [Autom ated message] 2107321568) The system [employer] generated this result transmit rey reference range : 0 - 5 HPF. The refe rence range was not u sed to interpret th is result as normal/abnormal . BACTERIA (test code = Few Negative A 3262430037) MUCOUS (test code = Marked Negative LPF A 5924011795) SQ EPITH (test code = HPF 9538414056) HYAL CAST (test code = See_Comment H [Aut omated message] 7853249060) The system [employer] generated this result transmit rey reference range : <=2 LPF. The refere nce range was not u sed to interpret th is result as normal/abnormal . Lab Interpretation (test Abnormal code = 73658-4) NPI:[id number] with [id number] 17:32:17 Test Item Value Reference Range Interpretation Comments WBC (test code = See_Comment H [Automated 6690-2) message] The sy stem which generated this result transmitted reference range : 4.30 - 11.10 10*3/?L. The reference range was not used to interpret this result as normal/abnormal . RBC (test code = See_Comment [Automated 789-8) message] The sy stem which generated this result transmitted reference range : 3.93 - 5.25 10*6/?L. The reference range was not used to interpret this result as normal/abnormal . HGB (test code = 14.8 g/dL 11.6-15.0 718-7) HCT (test code = 42.3 % 35.7-45.2 4544-3) MCV (test code = 91.0 fL 80.6-95.5 787-2) MCH (test code = 31.8 pg 25.9-32.8 785-6) MCHC (test code = 35.0 g/dL 31.6-35.1 786-4) RDW-SD (test code = 41.3 fL 39.0-49.9 25593-3) RDW-CV (test code = 12.6 % 12.0-15.5 788-0) PLT (test code = See_Comment [Automated 777-3) message] The sy stem which generated this result transmitted reference range : 166 - 358 10*3/ ?L. The reference r sofía was not used to interpret this result as normal/abnormal . MPV (test code = 10.5 fL 9.5-12.9 07530-6) IPF % (test code = 4.9 % 1.3-7.7 Platelet count 5221470862) measured by fluorescence method. NRBC/100 WBC (test See_Comment [Automat ed code = 6733797671) message] The system which generated this result transmitted reference range : 0.0 - 10.0 /100 WBCs. The refer ence range was not u sed to interpret th is result as normal/abnormal . NRBC x10^3 (test code <0.01 See_Comment [Auto mated = 6290433339) message] The s ystem which generated this result transmitted reference range : 10*3/?L. The reference range was not used to interpret this result as normal/abnormal . GRAN MAT (NEUT) % 81.0 % (test code = 770-8) IMM GRAN % (test code 0.40 % = 9523042048) LYMPH % (test code = 9.9 % 736-9) MONO % (test code = 8.3 % 5905-5) EOS % (test code = 0.1 % 713-8) BASO % (test code = 0.3 % 706-2) GRAN MAT x10^3(ANC) 9.45 10*3/uL 1.88-7.09 H (test code = 2109125108) IMM GRAN x10^3 (test 0.05 10*3/uL 0.00-0.06 code = 5127199624) LYMPH x10^3 (test code 1.16 10*3/uL 1.32-3.29 L = 731-0) MONO x10^3 (test code 0.97 10*3/uL 0.33-0.92 H = 742-7) EOS x10^3 (test code = <0.03 0.03-0.39 L 711-2) BASO x10^3 (test code 0.04 10*3/uL 0.01-0.07 = 704-7) Lab Interpretation Abnormal (test code = 96861-9) NPI:[id number] 17:15:00 Test Item Value Reference Range Interpretation Comments POCT PREG (test code = 1605) negative On board controls acceptable with present C Line (test code = 3574) POCT PREG LOT # (test code = 3575) [id number] POCT PREG TEST DATE (test 05/29/2022 code = 3576) Lab Interpretation (test code = Normal 50648-7) "
[2021-11-07] MEDS ORDERED: ONDANSETRON 4 MG/2 ML VIAL ONE (11:20)
[2021-11-07] MEDS ORDERED: NA CHLORIDE 0.9% 1,000 ML ONE (11:21)
[2021-11-07] MEDS ORDERED: FAMOTIDINE 20 MG/2 ML VIAL IV ONE (11:21)
[2021-11-07 11:22] LABS: Absolute Lymphocytes (CBC) 1.6 K/uL (0.7-4.9); Hematocrit 38.9 % (36.0-45.0); Lymphocytes % 23.8 % (15.3-44.8); MPV 8.6 fL (7.6-11.3); RBC Red Blood Cell Count 4.26 M/uL (3.86-4.86)
[2021-11-07 11:41] LABS: Albumin 4.7 g/dL (3.4-5.0); Bilirubin Total 0.5 mg/dL (0.2-1.0); Potassium 3.5 mmol/L (3.5-5.1); Protein, Total 8.8 g/dL (6.4-8.2)
[2021-11-07 12:23] LABS: Urine Blood 3+ (Negative); Urine Glucose Negative (Negative); Urine Protein 3+ (Negative); Urine Specific Gravity >=1.030 (1.005-1.030); Urine pH 5.5 (5.0-7.0)
--- NOTE | 2021-11-07 13:03 | RAD REPORT ---
EXAM DESCRIPTION: CT - Abdomen Pelvis W Contrast - 11/07/2021 12:43 pm CLINICAL HISTORY: Abdominal pain COMPARISON: none. TECHNIQUE: Computed axial tomography of the abdomen pelvis was obtained. 100 cc Isovue-300 was admin istered intravenously. Oral contrast was not requested which limits evaluation of bowel. All CT scans are performed using dose optimization technique as appropriate and may include automated exposure control or mA/KV adjustment according to patient size. FINDINGS: The liver, spleen, pancreas, adrenal and kidneys appear unremarkable. There is no evidence of diverticulitis. Normal appendix. No adnexal mass IMPRESSION: No acute abnormality is displayed.
--- NOTE | 2021-11-07 13:29 | EDPHYS ---
Physician Documentation [facility] Name: Alycia Veronica Age: 41 yrs Sex: Female : 1980 Arrival Date: 11/07/2021 Time: 10:31 Bed 13 Private MD: ED Physician Jason Jones HPI: 11/07 11:01 This 41 yrs old Black Female presents to ER via Ambulatory with complaints of Decreased jmm Appetite, Weakness, Shoulder Pain. 11:01 The patient presents with abdominal pain. Onset: The symptoms/episode began/occurred jmm gradually, 2 day(s) ago. The symptoms do not radiate. Associated signs and symptoms: Pertinent positives: nausea. This is a 41 year old female with a history of bipolar, htn, schizophrenia that presents to the ED with complaints of decreased appetite, nausea, lower abdominal pain. Denies diarrhea, fever, vomiting. . [place] MATE: 10:57 LMP 11/07/2021 jl7 Historical: - Allergies: 11:03 No Known Allergies; jl7 - PMHx: 10:57 Anxiety; Bipolar disorder; Hypertension; Schizophrenia; MHR; jl7 - Immunization history:: Adult Immunizations unknown. - Social history:: Smoking status: Patient reports the use of cigarette tobacco products, smokes one pack cigarettes per day. ROS: 11:01 Constitutional: Negative for fever, chills, and weight loss, Cardiovascular: Negative jmm for chest pain, palpitations, and edema, Respiratory: Negative for shortness of breath, cough, wheezing, and pleuritic chest pain. 11:01 Abdomen/GI: Positive for abdominal pain, nausea. 11:01 All other systems are negative. Exam: 11:01 Constitutional: This is a well developed, well nourished patient who is awake, alert, jmm and in no acute distress. Head/Face: atraumatic. Eyes: EOMI, no conjunctival erythema appreciated ENT: Moist Mucus Membranes Neck: Trachea midline, Supple Chest/axilla: Normal chest wall appearance and motion. Cardiovascular: Regular rate and rhythm. No edema appreciated Respiratory: Normal respirations, no respiratory distress appreciated 11:01 Back: Normal ROM Skin: General appearance color normal MS/ Extremity: Moves all extremities, no obvious deformities appreciated, no edema noted to the lower extremities Neuro: Awake and alert Psych: Behavior is normal, Mood is normal, Patient is cooperative and pleasant 11:01 Abdomen/GI: Inspection: abdomen appears normal, Bowel sounds: normal, Palpation: soft, mild abdominal tenderness, in the right lower quadrant and left lower quadrant. Vital Signs: 10:55 BP 117 / 81; Pulse 83; Resp 17; Temp 97.9; Pulse Ox 100% ; Weight 54.88 kg; Height 5 7 ft. 3 in. (160.02 cm); Pain 9/10; 10:55 Body Mass Index 21.43 (54.88 kg, 160.02 cm) 7 MDM: 11:01 Patient medically screened. [facility] 13:22 Data reviewed: vital signs, nurses notes. Counseling: I had a detailed discussion with [facility] the patient and/or guardian regarding: the historical points, exam findings, and any diagnostic results supporting the discharge/admit diagnosis, lab results, radiology results, the need for outpatient follow up, to return to the emergency department if symptoms worsen or persist or if there are any questions or concerns that arise at home. ED course: Imaging studies negative. Patient prescribed oral abx for uti. Advised to return to the ER if symptoms worsened. Patient understood and agrees with the plan of care. . 11/07 11:04 Order name: CBC with Diff; Complete Time: 11:48 [facility] 11/07 11:04 Order name: CMP; Complete Time: 11:48 [facility] 11/07 11:04 Order name: Lipase; Complete Time: 11:48 [facility] 11/07 11:16 Order name: CT Abd/Pelvis - IV Contrast Only; Complete Time: 13:05 [facility] 11/07 12:23 Order name: Urine Dipstick-Ancillary; Complete Time: 12:28 [facility] 11/07 11:04 Order name: IV Saline Lock; Complete Time: 11:14 [facility] 11/07 11:04 Order name: Labs collected and sent; Complete Time: 11:14 [facility] 11/07 11:04 Order name: Urine Dipstick-Ancillary (obtain specimen); Complete Time: 12:27 [facility] 11/07 11:04 Order name: Urine Test (obtain specimen); Complete Time: 12:27 [facility] Administered Medications: 11:18 Drug: NS 0.9% 1000 ml Route: IV; Rate: 1 bolus; Site: right antecubital; ww 11:18 Drug: Zofran (Ondansetron) 4 mg Route: IVP; Infused Over: 2 mins; Site: right ww antecubital; 11:23 Drug: Pepcid (famotidine) 20 mg Route: IVP; Infused Over: 2 mins; Site: right ww antecubital; 13:33 Drug: Rocephin (cefTRIAXone) 1 grams Route: IV; Rate: calculated rate; Site: right ww antecubital; Disposition: 21:19 Co-signature as Attending Physician, Jason BERNARD was immediately available on-site ms3 in the Emergency Department for consultation in the care of the patient.. Disposition Summary: 11/07/21 13:28 Discharge Ordered Location: Home [facility] Condition: Stable [facility] Diagnosis - UTI/ Urinary tract infection, site not specified [facility] Followup: [facility] - With: Private Physician - When: 2 - 3 days - Reason: Recheck today's complaints, Continuance of care, Re-evaluation by your physician Discharge Instructions: - Discharge Summary Sheet [facility] - Urinary Tract Infection, Adult [facility] Forms: - Medication Reconciliation Form [facility] - Thank You Letter [facility] - Antibiotic Education [facility] - Prescription Opioid Use [facility] Prescriptions: - cefdinir 300 mg Oral capsule - take 1 capsule by ORAL route every 12 hours for 10 days; 20 capsule; Refills: [facility] 0, Product Selection Permitted - ondansetron 4 mg Oral tablet,disintegrating - take 1 tablet by ORAL route every 4-6 hours As needed; 30 tablet; Refills: 0, [facility] Product Selection Permitted Signatures: Dispatcher [employer] EDPaolo Mayorga PA PA jmm Leal, Jahala RN RN francisco [email or web address] aJson Jones DO DO ms3 Aubrie Ramos, RN RN ww Corrections: (The following items were deleted from the chart) 11:04 10:57 Allergies: Unable to obtain; ren jlGerson
--- NOTE | 2021-11-07 13:29 | ER ---
Nurse's Notes [facility] Name: Alycia Veronica Age: 41 yrs Sex: Female : 1980 Arrival Date: 11/07/2021 Time: 10:31 Bed 13 Private MD: Diagnosis: UTI/ Urinary tract infection, site not specified Presentation: 11/07 10:55 Chief complaint: Patient states: Nausea and unable to eat x 4 days, feels shaky, denies jl7 urinary symptoms. Coronavirus screen: At this time, the client does not indicate any symptoms associated with coronavirus-19. Ebola Screen: No symptoms or risks identified at this time. Initial Sepsis Screen: Does the patient meet any 2 criteria? No. Patient's initial sepsis screen is negative. Does the patient have a suspected source of infection? No. Patient's initial sepsis screen is negative. Risk Assessment: Do you want to hurt yourself or someone else? Patient reports no desire to harm self or others. Onset of symptoms was November 04, 2021. 10:55 Method Of Arrival: Ambulatory [facility] 10:55 Acuity: MELISSA 3 jl7 Triage Assessment: 10:57 General: Appears in no apparent distress. uncomfortable, Behavior is calm, cooperative. jl7 Pain: Complains of pain in anterior aspect of left shoulder and posterior aspect of left shoulder Pain currently is 9 out of 10 on a pain scale. 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 - Social history:: Smoking status: Patient reports the use of cigarette tobacco products, smokes one pack cigarettes per day. Screenin:22 Abuse screen: Denies threats or abuse. Denies injuries from another. Nutritional ww screening: No deficits noted. Tuberculosis screening: No symptoms or risk factors identified. Fall Risk None identified. Assessment: 11:01 General: Appears in no apparent distress. Behavior is cooperative, anxious. Pain: ww Complains of pain in suprapubic area, right lower quadrant and left lower quadrant. Neuro: Level of Consciousness is awake, alert, obeys commands, Oriented to person, place, time, situation, Moves all extremities. 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 Speech is normal. Cardiovascular: Patient's skin is warm and dry. Chest pain is denied. Respiratory: Airway is patent Respiratory effort is even, unlabored, Respiratory pattern is. GI: Abdomen is non-distended, Reports lower abdominal pain, nausea. Derm: Skin is healthy with good turgor. 12:12 Reassessment: Patient appears in no apparent distress at this time. No changes from ww previously documented assessment. Patient and/or family updated on plan of care and expected duration. Pain level reassessed. Patient is alert, oriented x 3, equal unlabored respirations, skin warm/dry/pink. 13:42 Reassessment: Patient appears in no apparent distress at this time. No changes from ww previously documented assessment. Patient and/or family updated on plan of care and expected duration. Pain level reassessed. Patient is alert, oriented x 3, equal unlabored respirations, skin warm/dry/pink. Vital Signs: 10:55 BP 117 / 81; Pulse 83; Resp 17; Temp 97.9; Pulse Ox 100% ; Weight 54.88 kg; Height 5 jl7 ft. 3 in. (160.02 cm); Pain 9/10; 10:55 Body Mass Index 21.43 (54.88 kg, 160.02 cm) jl7 ED Course: 10:31 Patient arrived in ED. ds1 10:50 Paolo Powell PA is PHCP. jmm 10:50 Jason Jones DO is Attending Physician. jmm 10:55 Aubrie Ramos, RN is Primary Nurse. ww 10:57 Triage completed. jl7 10:57 Arm band placed on right wrist. jl7 11:22 Patient has correct armband on for positive identification. Bed in low position. Call ww light in reach. Side rails up X 1. 11:22 Inserted saline lock: 20 gauge in right antecubital area, using aseptic technique. ww Blood collected. 12:45 CT Abd/Pelvis - IV Contrast Only In Process Unspecified. EDMS 13:47 No provider procedures requiring assistance completed. IV discontinued, intact, ww bleeding controlled, No redness/swelling at site. Pressure dressing applied. Administered Medications: 11:18 Drug: NS 0.9% 1000 ml Route: IV; Rate: 1 bolus; Site: right antecubital; ww 11:18 Drug: Zofran (Ondansetron) 4 mg Route: IVP; Infused Over: 2 mins; Site: right ww antecubital; 11:23 Drug: Pepcid (famotidine) 20 mg Route: IVP; Infused Over: 2 mins; Site: right ww antecubital; 13:33 Drug: Rocephin (cefTRIAXone) 1 grams Route: IV; Rate: calculated rate; Site: right ww antecubital; Outcome: 13:28 Discharge ordered by MD. viera 13:47 Discharged to home ambulatory. ww 13:47 Condition: stable 13:47 Discharge instructions given to patient, Instructed on discharge instructions, follow up and referral plans. medication usage, safety practices, Demonstrated understanding of instructions, follow-up care, medications, Prescriptions given X 2. 13:51 Patient left the ED. ww Signatures: Dispatcher [employer] EDMS Paolo Powell PA PA jmm Sanford, Demi ds1 Louis Ellis RN RN Aubrie Estevez RN RN ww Corrections: (The following items were deleted from the chart) 11:04 10:57 Allergies: Unable to obtain; ren mcclure
[2021-11-07] MEDS ORDERED: CEFTRIAXONE 1000 MG/VIAL ONE (13:34)
[2021-11-07] MEDS ORDERED: NA CHLORIDE 0.9% 100 ML IV ONE (13:35)
[2021-11-07 13:57] VITALS: BP 117/81; TEMP 97.9; O2SAT 100
== END 2021-11-07 13:51 | disposition home or self-care (01) ==
LOC: ER 10:28
DX: N39.0 Urinary tract infection, site not specified (principal); I10 Essential (primary) hypertension; F20.9 Schizophrenia, unspecified; F17.210 Nicotine dependence, cigarettes, uncomplicated
CPT/HCPCS: 85025; 36415; 81003; 83690; 80053; 74177; Q9967; J7030; J2405; J3490

== ENCOUNTER 2022-01-06 11:42 | Emergency (ER) | payer OTHER, SELFPAY ==
--- NOTE | 2022-01-06 12:11 | EDPHYS ---
Physician Documentation [facility] Name: Alycia Veronica Age: 41 yrs Sex: Female : 1980 Arrival Date: 01/06/2022 Time: 11:45 Bed DIS3 Private MD: ED Physician Tristin Angel HPI: 01/06 12:07 This 41 yrs old Black Female presents to ER via Unassigned with complaints of R/O COVID.rn 12:07 Patient reports nasal congestion, headache, malaise, chills, nausea, diarrhea for 2 rn days. Took home test and was positive for COVID. Patient does not believe home test and she insists on testing here. States has 2-month-old at home and needs to know whether she has it or not. Denies shortness of breath. Onset: The symptoms/episode began/occurred 2 day(s) ago. Severity of symptoms: At their worst the symptoms were mild in the emergency department the symptoms are unchanged. The patient has not experienced similar symptoms in the past. The patient has not recently seen a physician. Historical: - Allergies: 12:11 No Known Allergies; iw - PMHx: 12:11 Anxiety; Bipolar disorder; Hypertension; MHR; Schizophrenia; iw - Family history:: not pertinent. - Hospitalizations: : No recent hospitalization is reported. 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 Exam: 12:07 Constitutional: This is a well developed, well nourished patient who is awake, alert, rn and in no acute distress. Head/Face: Normocephalic, atraumatic. Eyes: Periorbital areas with no swelling, redness, or edema. Cardiovascular: Regular rate and rhythm. No pulse deficits. Respiratory: Speaking full sentences, unlabored. No increased work of breathing, no retractions or nasal flaring. Skin: Warm, dry MS/ Extremity: Pulses equal, no cyanosis. Neuro: Awake and alert, GCS 15 Vital Signs: 12:31 BP 135 / 78; Pulse 89; Resp 16; Temp 98.9; Pulse Ox 100% on R/A; iw MDM: 12:00 Patient medically screened. rn 12:07 Differential Diagnosis COVID. Data reviewed: vital signs, nurses notes, and as a rn result, I will discharge patient. Counseling: I had a detailed discussion with the patient and/or guardian regarding: the historical points, exam findings, and any diagnostic results supporting the discharge/admit diagnosis, the need for outpatient follow up, to return to the emergency department if symptoms worsen or persist or if there are any questions or concerns that arise at home. Special discussion: I discussed with the patient/guardian in detail that at this point there is no indication for admission to the hospital. It is understood, however, that if the symptoms persist or worsen the patient needs to return immediately for re-evaluation. 18:21 ED course: Patient notified earlier that COVID test here positive by charge nurse. . ED rn course: Mother called upset that patient did not receive a "z pack", I took the call, spoke at length with mother, kindly explained that patient had general COVID symptoms, but normal vitals, no oxygen requirement, and afebrile. During visit patient declined chest pain or sob. Mother states that daughter states she hurts and cannot believe she didn't get an antibiotic since she knows several people who have gone to ER for COVID and they received abx. Recommended if patient's symptoms have changed from prior to come for reeval. Also explained to her that zithromax is an antibiotic and would not help COVID, also that patient did not meet any criteria for further testing or admission. Mother still not happy after conversation and states will "further investigate this". . 01/06 12:01 Order name: SARS-COV-2 RT PCR (Document "Date of Onset" if Symptomatic); Complete Time: rn 18:17 Administered Medications: No medications were administered Disposition Summary: 01/06/22 12:10 Discharge Ordered Location: Home rn Problem: new rn Symptoms: are unchanged rn Condition: Stable rn Diagnosis - SARS-associated coronavirus as the cause of diseases classified elsewhere rn Followup: rn - With: Private Physician - When: As needed - Reason: Recheck today's complaints, Re-evaluation by your physician Discharge Instructions: - Discharge Summary Sheet rn - COVID-19 rn - 10 Things You Can Do to Manage Your COVID-19 Symptoms at Home - CDC rn - Viral Illness, Adult rn Forms: - Medication Reconciliation Form rn - Thank You Letter rn - Antibiotic development intern - Prescription Opioid Use rn Signatures: Dispatcher [employer] Aimee Bernal RN RN Tristin Campbell MD MD rn
--- NOTE | 2022-01-06 12:32 | ER ---
Nurse's Notes [facility] Name: Alycia Veronica Age: 41 yrs Sex: Female : 1980 Arrival Date: 01/06/2022 Time: 11:45 Bed DIS3 Private MD: Diagnosis: SARS-associated coronavirus as the cause of diseases classified elsewhere Presentation: 01/06 12:10 Chief complaint: Patient states: had positive covid at home, is having chest iw congestion, headache, diarrhea. Coronavirus screen: Client presents with at least one sign or symptom that may indicate coronavirus-19. Ebola Screen: Patient negative for fever greater than or equal to 101.5 degrees Fahrenheit, and additional compatible Ebola Virus Disease symptoms Patient denies exposure to infectious person. Patient denies travel to an Ebola-affected area in the 21 days before illness onset. No symptoms or risks identified at this time. Initial Sepsis Screen: Does the patient meet any 2 criteria? No. Patient's initial sepsis screen is negative. Does the patient have a suspected source of infection? No. Patient's initial sepsis screen is negative. Risk Assessment: Do you want to hurt yourself or someone else? Patient reports no desire to harm self or others. Onset of symptoms was January 06, 2022. 12:10 Method Of Arrival: Ambulatory iw 12:10 Acuity: MELISSA 4 iw Historical: - Allergies: 12:11 No Known Allergies; iw - PMHx: 12:11 Anxiety; Bipolar disorder; Hypertension; MHR; Schizophrenia; iw - Family history:: not pertinent. - Hospitalizations: : No recent hospitalization is reported. Vital Signs: 12:31 BP 135 / 78; Pulse 89; Resp 16; Temp 98.9; Pulse Ox 100% on R/A; iw ED Course: 11:45 Patient arrived in ED. as 12:00 Tristin Angel MD is Attending Physician. rn 12:11 Triage completed. iw 12:11 Arm band placed on. iw 12:13 SARS-COV-2 RT PCR (Document "Date of Onset" if Symptomatic) Sent. [facility] 12:30 Aimee Crowder, RN is Primary Nurse. iw Administered Medications: No medications were administered Outcome: 12:10 Discharge ordered by . rn 12:31 Patient left the ED. iw Signatures: Maria Eugenia Kraft as Vel, BIJAL Yu RN, Roman, MD MD rn Hall, Kristi eh3
[2022-01-06 12:38] VITALS: BP 135/78; TEMP 98.9; O2SAT 100
[2022-01-06] MEDS ORDERED: dexAMETHasone 4 MG/ML VIAL ONE (13:04)
== END 2022-01-06 12:31 | disposition home or self-care (01) ==
LOC: ER 11:42
DX: U07.1 COVID-19 (principal); I10 Essential (primary) hypertension
CPT/HCPCS: U0003; J1100; 99282

== ENCOUNTER 2022-01-07 10:42 | Emergency (ER) | payer OTHER ==
--- NOTE | 2022-01-07 12:58 | RAD REPORT ---
EXAM DESCRIPTION: RAD - Chest Single View - 01/07/2022 11:16 am CLINICAL HISTORY: COVID, chest pain Chest pain. COMPARISON: No comparisons FINDINGS: Portable technique limits examination quality. The lungs are grossly clear. The heart is normal in size. No displaced fractures. IMPRESSION: No acute intrathoracic process suspected.
--- NOTE | 2022-01-07 13:18 | ER ---
Nurse's Notes [facility] Name: Alycia Veronica Age: 41 yrs Sex: Female : 1980 Arrival Date: 01/07/2022 Time: 10:44 Bed 10 Private MD: Diagnosis: SARS-associated coronavirus as the cause of diseases classified elsewhere Presentation: 01/07 11:02 Chief complaint: Patient states: she was seen in the ED yesterday and dx with COVID. ap3 Patient states she still has COVID symptoms and needs medications to help her feel better. Patient reports a cough, headache and stomach ache. Coronavirus screen: Client reports previous positive COVID test result. Ebola Screen: No symptoms or risks identified at this time. Initial Sepsis Screen: Does the patient meet any 2 criteria? No. Patient's initial sepsis screen is negative. Does the patient have a suspected source of infection? No. Patient's initial sepsis screen is negative. Risk Assessment: Do you want to hurt yourself or someone else? Patient reports no desire to harm self or others. Onset of symptoms was January 06, 2022. 11:02 Method Of Arrival: Ambulatory ap3 11:02 Acuity: MELISSA 4 ap3 Triage Assessment: 11:04 Headache History: The patient has had previous headaches and this one is similar to ap3 previous episodes. General: Appears in no apparent distress. Behavior is calm, cooperative. Pain: Complains of pain in generalized body aches Pain currently is 4 out of 10 on a pain scale. Pain began gradually, Also complains of nausea. Neuro: Level of Consciousness is awake, alert, obeys commands, Oriented to person, place, time. Cardiovascular: Patient's skin is warm and dry. Respiratory: Airway is patent Respiratory effort is even, unlabored. Historical: - Allergies: 11:04 No Known Allergies; ap3 - PMHx: 11:04 Anxiety; Bipolar disorder; Hypertension; MHR; Schizophrenia; ap3 - Immunization history:: Client reports receiving the 2nd dose of the Covid vaccine. - Social history:: Smoking status: Patient reports the use of cigarette tobacco products, smokes one pack cigarettes per day. - Family history:: not pertinent. - Hospitalizations: : No recent hospitalization is reported. Screenin:06 Abuse screen: Denies threats or abuse. Nutritional screening: No deficits noted. ap3 Tuberculosis screening: No symptoms or risk factors identified. 13:35 Fall Risk None identified. ss Assessment: 13:35 General: Appears in no apparent distress. comfortable. Pain: Complains of pain in ss generalized headache, CP. Neuro: Level of Consciousness is awake, alert, obeys commands, Oriented to person, place, time, situation. Respiratory: Airway is patent Respiratory effort is even, unlabored, Respiratory pattern is regular, symmetrical. Derm: Skin is intact, is healthy with good turgor, Skin is dry, Skin is pink, warm \T\ dry. normal. 13:41 Reassessment: Patient appears in no apparent distress at this time. Patient and/or ss family updated on plan of care and expected duration. Pain level reassessed. Patient is alert, oriented x 3, equal unlabored respirations, skin warm/dry/pink. Vital Signs: 11:02 BP 140 / 81; Pulse 57; Resp 17; Temp 98.0; Pulse Ox 100% ; Weight 56.7 kg; Height 5 ft. ap3 4 in. (162.56 cm); 11:02 Body Mass Index 21.46 (56.70 kg, 162.56 cm) ap3 ED Course: 10:44 Patient arrived in ED. rg4 10:48 Tristin Angel MD is Attending Physician. rn 11:04 Triage completed. ap3 11:06 Arm band placed on right wrist. ap3 11:17 XRAY Chest (1 view) In Process Unspecified. EDMS 13:35 Patient has correct armband on for positive identification. Bed in low position. ss 13:41 Elizabeth Blankenship, BIJAL is Primary Nurse. 13:41 No provider procedures requiring assistance completed. Patient did not have IV access ss during this emergency room visit. Administered Medications: No medications were administered Medication: 13:41 VIS not applicable for this client. ss Outcome: 13:17 Discharge ordered by . rn 13:41 Discharged to home ambulatory. ss 13:41 Condition: good 13:41 Discharge instructions given to patient, Instructed on discharge instructions, follow up and referral plans. medication usage, Demonstrated understanding of instructions, follow-up care, medications, Prescriptions given X 1. 13:41 Patient left the ED. ss Signatures: Dispatcher [employer] EDMS Tristin Angel MD MD rn Smirch, Shelby, RN RN ss Garcia, Rubi rg4 Cindy Oliva, RN RN ap3
--- NOTE | 2022-01-07 13:18 | EDPHYS ---
Physician Documentation [facility] Name: Alycia Veronica Age: 41 yrs Sex: Female : 1980 Arrival Date: 01/07/2022 Time: 10:44 Bed 10 Private MD: ED Physician Tristin Angel HPI: 01/07 13:12 This 41 yrs old Black Female presents to ER via Ambulatory with complaints of Covid+, rn cough, Chest Pain. 13:13 The patient or guardian reports cough. Severity of symptoms: At their worst the rn symptoms were mild, in the emergency department the symptoms are unchanged. Modifying factors: The symptoms are alleviated by nothing, the symptoms are aggravated by nothing. Associated signs and symptoms: Pertinent negatives: fever. The patient has not experienced similar symptoms in the past. The patient has been recently seen at the [facility] Emergency Department. Pt reports COVID +, seen by me yesterday, states began to feel chest pain with coughing, denies sob. Came back today for "COVID pill". NO hemoptysis. No hx of DVT/PE. . Historical: - Allergies: 11:04 No Known Allergies; ap3 - PMHx: 11:04 Anxiety; Bipolar disorder; Hypertension; MHR; Schizophrenia; ap3 - Immunization history:: Client reports receiving the 2nd dose of the Covid vaccine. - Social history:: Smoking status: Patient reports the use of cigarette tobacco products, smokes one pack cigarettes per day. - Family history:: not pertinent. - Hospitalizations: : No recent hospitalization is reported. 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 Head/Face: Normocephalic, atraumatic. Eyes: Periorbital areas with no swelling, redness, or edema. Cardiovascular: Regular rate and rhythm. No pulse deficits. Respiratory: Clear bilateral breath sounds. No increased work of breathing, no retractions or nasal flaring. Skin: Warm, dry MS/ Extremity: Pulses equal, no cyanosis. Neuro: Awake and alert, GCS 15, oriented to person, place, time, and situation. Cranial nerves II-XII grossly intact. Motor strength 5/5 in all extremities. Sensory grossly intact. Cerebellar exam normal. Normal gait. Vital Signs: 11:02 BP 140 / 81; Pulse 57; Resp 17; Temp 98.0; Pulse Ox 100% ; Weight 56.7 kg; Height 5 ft. ap3 4 in. (162.56 cm); 11:02 Body Mass Index 21.46 (56.70 kg, 162.56 cm) ap3 MDM: 10:48 Patient medically screened. rn 13:13 Differential Diagnosis: Pneumonia Other COVID. Data reviewed: vital signs, nurses rn notes, old medical records, radiologic studies, plain films, and as a result, I will discharge patient. Counseling: I had a detailed discussion with the patient and/or guardian regarding: the historical points, exam findings, and any diagnostic results supporting the discharge/admit diagnosis, radiology results, the need for outpatient follow up, to return to the emergency department if symptoms worsen or persist or if there are any questions or concerns that arise at home. ED course: Pt still with 100% O2 saturation, non-toxic, normal exam, appears the same as yesterday. Demands "COVID pill". Will dc home with Paxlovid. . 01/07 10:48 Order name: XRAY Chest (1 view); Complete Time: 13:08 rn 01/07 10:48 Order name: EKG; Complete Time: 10:49 rn 01/07 10:48 Order name: EKG - Nurse/Tech; Complete Time: 13:41 rn Administered Medications: No medications were administered Disposition Summary: 01/07/22 13:17 Discharge Ordered Location: Home rn Problem: new rn Symptoms: are unchanged rn Condition: Stable rn Diagnosis - SARS-associated coronavirus as the cause of diseases classified elsewhere rn Followup: rn - With: Private Physician - When: As needed - Reason: Recheck today's complaints, Re-evaluation by your physician Discharge Instructions: - Discharge Summary Sheet rn - COVID-19 rn - 10 Things You Can Do to Manage Your COVID-19 Symptoms at Home - [facility] rn - Viral Illness, Adult rn Forms: - Medication Reconciliation Form rn - Thank You Letter rn - Antibiotic application development intern - Prescription Opioid Use rn Prescriptions: - PAXLOVID - take 3 tablet by ORAL route 2 times per day for 5 days; 1 packet; Refills: 0, rn Product Selection Permitted Signatures: Dispatcher [employer] Tristin Ruffin MD MD rn Cindy Oliva RN RN ap3
[2022-01-07 13:55] VITALS: BP 140/81; TEMP 98; O2SAT 100
--- NOTE | 2022-01-08 08:22 | EKG ---
Test Date: 2022-01-07 Test Time: 13:39:51 Ore Mixer: ROCHELLE MEASUREMENT RESULTS: Intervals: Rate: 51 AZ: 140 QRSD: 76 QT: 454 QTc: 418 Amigo: P: 61 AZ: 140 QRS: 41 T: 52 INTERPRETIVE STATEMENTS: Sinus bradycardia Otherwise normal ECG Compared to ECG 10/27/2020 04:56:30 Sinus tachycardia no longer present Electronically Signed On 01-08-22 08:18:32 CDT by Nils Arreola
== END 2022-01-07 13:41 | disposition home or self-care (01) ==
LOC: ER 10:42
DX: U07.1 COVID-19 (principal); R07.9 Chest pain, unspecified; F17.210 Nicotine dependence, cigarettes, uncomplicated; I10 Essential (primary) hypertension
CPT/HCPCS: 71045; 93005

== ENCOUNTER 2023-02-22 16:01 | Emergency (ER) | payer SELFPAY ==
[2023-02-22] MEDS ORDERED: BISACODYL 10 MG RECTAL SUPP ONE (16:45)
[2023-02-22] MEDS ORDERED: SIMETHICONE 80 MG TAB ONE (16:45)
[2023-02-22] MEDS ORDERED: BISACODYL E.C. 5 MG TAB PO ONE (16:45)
--- OUTSIDE RECORDS SUMMARY | 2023-02-22 17:06 | XMS REPORT | Continuity of Care Document ---
:[address] [facility] t Address [address] [facility] [address] [place] [address] Care Team Providers Name Role Phone Soledad Gilman NP Attending Clinician Doctor Unassigned, [place] Attending Clinician Unavailable Payers Payer Name Policy Type Policy Number Effective Date Expiration Date S [facility] MEDICARE PART A [id number] 2004 00:00:00 MEDICAID SSI PENDING 2020 PENDING 00:00:00 Problems Condition Condition Condition Status Onset Resolution Last Treating Co mments Source Name Details Category Date Date Treatment Clinician Date No known No known Disease Unive rs active active ity of problems problems [facility] Allergies, Adverse Reactions, Alerts Allergy Allergy Status Severity Reaction(s) Onset Inactive Treating Comm ents Source Name Type Date Date Clinician NO KNOWN Drug Active Univers ALLERGIE Class ity of S [facility] Social History Social Habit Start Date Stop Date Quantity Comments Source Exposure to Not sure [facility] SARS-CoV-2 (event) Medica l Branch Sex Assigned At [birth year] [facility] 00:00:00 00:00:00 [facility] Branch Smoking Status Start Date Stop Date Source Unknown if ever smoked [facility] Medications Ordered Filled Start Stop Current Ordering Indication Dosage Frequency Signature Comments Components Source Medication Medication Date Date Medication? Clinician (SIG) Name Name nicotine Yes 1{patch 1 Patch, Un gregorio (NICODERM) 4-27 } Topical, ity o f 14 mg/24 hr 21:00: Administer [place] patch 1 00 over 24 Medical Patch Hours, Branch Q24H, First dose on Fri10/24/20 at 1600, Until Discontinu ed, Routine LORazepam 2020- No 1mg 1 mg, Slow U nivers (ATIVAN) 10-24 IV Push, ity of injection 1 18:15: 17:14 [place] 1 [place] :[place] dose, Fri [facility] 10/24/20 at Branch 1315, STAT ibuprofen 2018- No 600mg 600 mg, Uni vers (IBU) 02-26 Oral, ity of tablet 600 22:00: 21:21 ONCE, 1 [place] mg 00 :00 dose, Fri [facility] 02/26/19 at Branch 1700, LUIS ANGEL ofloxacin Yes [id number] 4[drp] Place 4 Univers 0.3 % otic 02-26 32285 Drops in ity of drops 00:00: left ear 3 [place] 00 (three) Medical times Branch daily. ofloxacin Yes [id number] 4[drp] Place 4 Univers 0.3 % otic 02-26 35233 Drops in ity of drops 00:00: left ear 3 [place] 00 (three) Medical times Branch daily. ofloxacin Yes [id number] 4[drp] Place 4 Univers 0.3 % otic 8- 31928 Drops in ity of drops 00:00: left ear 3 [place] 00 (three) Medical times Branch daily. amoxicillin 2019- No [id number] 500mg Take 1 Univers 500 mg 02-26 capsule by ity of capsule 00:00: 04:59 mouth 3 [place] 00 :00 (three) Medical times Branch daily for 10 days. cyclobenzap 2019- No 5mg Take 1 Uni vers rine 5 mg 01-2330 tablet by ity of tablet 00:00: 00:00 mouth 3 [place] 00 :00 (three) Medical times Branch daily. traMADOL 2018- No 50mg Take 1 Univer s (ULTRAM) 50 01-2330 tablet by it y of mg tablet 00:00: 00:00 mouth [place] 00 :00 every 6 Medical (six) Branch hours as needed for Pain (scale 4-6). pantoprazol 2019- No 40mg Take 1 Tab Univers e 09-05 by mouth ity of (PROTONIX) 00:00[place] 00[place]. [place] 40 mg EC 00 :00 Medical tablet Branch Vital Signs Vital Name Observation Time Observation Value Comments Source Systolic blood 2020-10-24 19:05:00 148 mm[Hg] Univer sity of pressure [facility] Diastolic blood 2020-10-24 19:05:00 97 mm[Hg] Unive rsity of [facility] Body temperature 2020-10-24 19:05:00 37.39 Stephanie Univ [facility] [place] [facility] Respiratory rate 2020-10-24 19:05:00 20 /min Univ ersity of [facility] Branch Oxygen saturation in 2020-10-24 19:05:00 98 /min University of Arterial blood by [facility] Pulse oximetry Branch Heart rate 2020-10-24 16:17:21 111 /min Universi ty of [facility] Body weight 2020-10-24 16:07:00 58.968 kg Universi ty of [place] [facility] [place] BMI 2020-10-24 16:07:00 22.31 kg/m2 Universi ty of [facility] Branch Systolic blood 2020-10-24 19:05:00 148 mm[Hg] Univer sity of [facility] Diastolic blood 2020-10-24 19:05:00 97 mm[Hg] Unive rsity of [facility] Body temperature 2020-10-24 19:05:00 37.39 Stephanie Univ ersity of [facility] Branch Respiratory rate 2020-10-24 19:05:00 20 /min Univ [facility] [place] [facility] Oxygen saturation in 2020-10-24 19:05:00 98 /min University of Arterial blood by [facility] Pulse oximetry Branch Heart rate 2020-10-24 16:17:21 111 /min [facility] [place] [facility] Body weight 2020-10-24 16:07:00 58.968 kg Universi ty of [facility] Branch BMI 2020-10-24 16:07:00 22.31 kg/m2 Universi ty of [facility] Branch Systolic blood 2019-02-26 20:27:00 134 mm[Hg] Univer sity of [facility] Diastolic blood 2019-02-26 20:27:00 89 mm[Hg] Unive rsity of [facility] Branch Heart rate 2019-02-26 20:27:00 86 /min Universi ty of [place] [facility] [place] Body temperature 2019-02-26 20:27:00 36.67 Stephanie Univ ersity of [facility] Respiratory rate 2019-02-26 20:27:00 18 /min Univ ersity of [facility] Body height 2019-02-26 20:27:00 162.6 cm Universi ty of [place] [facility] [place] Body weight 2019-02-26 20:27:00 66.815 kg [facility] [place] [facility] BMI 2019-02-26 20:27:00 25.28 kg/m2 Universi ty of [facility] Oxygen saturation in 2019-02-26 20:27:00 99 /min University of Arterial blood by [facility] Pulse oximetry Branch Systolic blood 2019-02-26 20:27:00 134 mm[Hg] Univer sity of [facility] Diastolic blood 2019-02-26 20:27:00 89 mm[Hg] Unive rsity of pressure [facility] Heart rate 2019-02-26 20:27:00 86 /min Universi ty [facility] [place] [facility] [place] Body temperature 2019-02-26 20:27:00 36.67 Stephanie [facility] ersity of [facility] Respiratory rate 2019-02-26 20:27:00 18 /min [facility] ersity of [facility] Body height 2019-02-26 20:27:00 162.6 cm [facility]i ty [facility] [place] [facility] [place] Body weight 2019-02-26 20:27:00 66.815 kg [facility]i ty [facility] [place] [facility] [place] BMI 2019-02-26 20:27:00 25.28 kg/m2 Universi ty of [facility] Oxygen saturation in 2019-02-26 20:27:00 99 /min University of Arterial blood by [facility] Pulse oximetry Branch Procedures Procedure Date / Time Performing Clinician Source Performed POCT TEST 2020-10-24 17:15:00 Soledad Gilman [facility] THYROID STIMULATING 2020-10-24 17:10:00 Sloedad Gilman [facility] HORMONE [facility] HEPATIC FUNCTION PANEL 2020-10-24 17:10:00 Soledad Gilman [facility] ([id number]) (ALB,T.PRO,BILI Medical Branch T,BU/BC,ALT,AST,ALK PHOS) BASIC METABOLIC PANEL 2020-10-24 17:10:00 [facility] (NA, K, CL, CO2, [facility] GLUCOSE, BUN, CREATININE, CA) SALICYLATE 2020-10-24 17:10:00 Soledad Gilman [facility] ETHANOL 2020-10-24 17:10:00 Soledad Gilman [facility] CBC WITH DIFF 2020-10-24 17:10:00 Soledad Gilman [facility] URINE DRUG (IMMUNOASSAY) 2020-10-24 16:56:00 [facility] SCREEN URINALYSIS 2020-10-24 16:56:00 Soledad Gilman [facility] CONSENT/REFUSAL FOR 2020-10-24 15:47:56 Doctor Unassigned, No [facility] NOTICE OF PRIVACY 2019-02-26 20:17:32 Doctor Unassigned, No Univ [facility] [place] PRACTICES Name [facility] CONSENT/REFUSAL FOR 2019-02-26 20:17:18 Doctor Unassigned, No Un iversity of [place] DIAGNOSIS AND TREATMENT [facility] Encounters Start End Encounter Admission Attending Care Care Encounter Source Date/Time Date/Time Type Type Clinicians Facility Department ID 2020-10-24 2020-10-24 Emergency X [facility] ERT [id number] Univers 16:34:00 17:00:00 [facility] 2020-10-24 2020-10-24 Emergency [facility] [id number] 11:11:00 15:37:00 Soledad Tamayo [id number] [place] 4.2.7.2.686 [place] [id number] [facility] 2020-10-24 2020-10-24 Emergency [facility] [id number] [facility] 11:11:00 15:37:00 [id number] [facility] [id number] [address] 2020-10-24 2020-10-24 Emergency X [facility] ERT [id number] Univers 10:48:00 10:48:00 ity of [facility] 2020-10-24 2020-10-24 Orders Doctor GITA [id number] 00:00:00 00:00:00 Only Unassigned, [place] [id number] [place] [facility] 4.2.7.2.686 [id number] 2020-10-24 2020-10-24 Orders Doctor GITA [id number] Univers 00:00:00 00:00:00 Only Unassigned, [place] [id number] ity of [place] [facility] 4.2.7.2.686 Ti [id number] [facility] 009 Branch 2019-02-26 2019-02-26 Emergency [facility] [id number] [facility] 15:30:21 16:52:00 Soledad Tamayo [id number] ity of [place] 4.2.7.2.[address] [facility] [id number] [facility] 084 Branch 2019-02-26 2019-02-26 Emergency [facility] [id number] 15:30:21 16:52:00 Soledad Tamayo [id number] [place] 4.2.7.2.686 [place] [id number] 084 Results Test Description Test Time Test Comments Results Result Comments Source DRUG PANEL 2 URINE 2020-10-24 18:57:06 Test Item Value Reference Range Interpretation Comme nts AMPHET (test code = 5580802645) Negative Negative TIGIST U (test code = 3697260314) Negative Negative BENZO U (test code = 0085680600) Negative Negative Cocaine Metabolite (test code = Negative Negative 0309197747) METHADONE (test code = 7556196659) Negative Negative OPIATES (test code = 5561189756) Negative Negative PCP (test code = 2753836212) Negative Negative THC (test code = 0327441069) Presumptive Positive Negative A GLENN (test code [...] testing). Lab Interpretation (test code = Abnormal 94639-4) [facility] [id number] 18:45:09 Test Item Value Reference Range Interpretation Comments TSH (test code = See_Comment [Automated message] 8078003582) The system [employer] generated this result transmitted ref erence range: 0.45 - 4 .70 mIU/L. The refe rence range was not u sed to interpret this result as normal/abnor mal. 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 Analgesic and Antipyretic Use ? 20-100 mg/L ? ? Anti-Inflammatory Use ? 100-250 mg/L Toxic Range: ? Greater than 300 mg/L [facility] (ALB, T.PRO, BILI T, BU/BC, ALT, AST, ALK PHOS)2020-10-24 18:14:16 Test Item Value Reference Range Interpretation Comments TOTAL BILI (test code = 8691126606) 1.0 mg/dL 0.1-1.1 BILI UNCON (test code = 2595106569) 0.8 mg/dL 0.1-1.1 BILI CONJ (test code = 1297189326) 0.0 mg/dL 0.0-0.3 T PROTEIN (test code = 6035247996) 8.3 g/dL 6.3-8.2 H ALBUMIN (test code = 4011902770) 5.2 g/dL 3.5-5.0 H ALK PHOS (test code = 0312686483) 49 U/L 34-122 ALTv (test code = 1742-6) 34 U/L 5-35 AST(SGOT) (test code = 1117957359) 42 U/L 13-40 H Lab Interpretation (test code = Abnormal 84810-7) [facility] (NA, K, CL, CO2, GLUCOSE, BUN, CREATININE, CA)2020-10-24 18:13:56 Test Item Value Reference Range Interpretation Comments NA (test code = 136 mmol/L 135-145 9077994123) K (test code = 3.9 mmol/L 3.5-5.0 7063122765) CL (test code = 99 mmol/L 98-108 2615467145) CO2 TOTAL (test code 26 mmol/L 23-31 = 9000010269) AGAP (test code = 2-16 1429969052) BUN (test code = 8 mg/dL 7-23 8538764195) GLUCOSE (test code = 104 mg/dL 70-110 9734944863) CREATININE (test code 0.75 mg/dL 0.50-1.04 = 3080779983) CALCIUM (test code = 10.5 mg/dL 8.6-10.6 0940800643) eGFR (test code = mL/min/1.73m2 4246389270) GLENN (test code = GLENN) Association of [...] or urine or abnormalities in imaging tests). [facility] [id number] 17:58:39 Test Item Value Reference Range Interpretation Comments APPEARANCE (test code = Cloudy Clear A 2075483840) COLOR (test code = Em Yellow A 3733702985) PH (test code = 4.8-8.0 8174915509) SP GRAVITY (test code = 1.003-1.030 7420736003) GLU U QUAL (test code = Normal Normal 0043642071) BLOOD (test code = 1+ Negative A 5348701411) KETONES (test code = 5 mg/dL Negative A 1395541410) PROTEIN (test code = 100 mg/dL Negative A 2887-8) UROBILIN (test code = 2.0 mg/dL Normal A 2392029903) BILIRUBIN (test code = Negative Negative 6243024155) NITRITE (test code = Negative Negative 2393394200) LEUK JERROD (test code = Negative Negative 2915325348) RBC/HPF (test code = See_Comment H [Autom ated message] 0028661060) The system [employer] generated this result transmit rey reference range : 0 - 3 HPF. The refe rence range was not u sed to interpret th is result as normal/abnormal . WBC/HPF (test code = See_Comment H [Autom ated message] 8134291397) The system [employer] generated this result transmit rey reference range : 0 - 5 HPF. The refe rence range was not u sed to interpret th is result as normal/abnormal . BACTERIA (test code = Few Negative A 4924871007) MUCOUS (test code = Marked Negative LPF A 1322436111) SQ EPITH (test code = HPF 8623320250) HYAL CAST (test code = See_Comment H [Aut omated message] 5336846609) The system [employer] generated this result transmit rey reference range : <=2 LPF. The refere nce range was not u sed to interpret th is result as normal/abnormal . Lab Interpretation (test Abnormal code = 06286-5) [facility] with [id number] 17:32:17 Test Item Value Reference Range Interpretation [...] RDW-SD (test code = 41.3 fL 39.0-49.9 43310-0) RDW-CV (test code = 12.6 % 12.0-15.5 788-0) PLT (test code = See_Comment [Automated 777-3) message] The sy stem which generated this result transmitted reference range : 166 - 358 10*3/ ?L. The reference r sofía was not used to interpret this result as normal/abnormal . MPV (test code = 10.5 fL 9.5-12.9 86185-7) IPF % (test code = 4.9 % 1.3-7.7 Platelet count 4325287576) measured by fluorescence method. NRBC/100 WBC (test See_Comment [Automat ed code = 1433052958) message] The system which generated this result transmitted reference range : 0.0 - 10.0 /100 WBCs. The refer ence range was not u sed to interpret th is result as normal/abnormal . NRBC x10^3 (test code <0.01 See_Comment [Auto mated = 5593954513) message] The s ystem which generated this result transmitted reference range : 10*3/?L. The reference range was not used to interpret this result as normal/abnormal . GRAN MAT (NEUT) % 81.0 % (test code = 770-8) IMM GRAN % (test code 0.40 % = 3922628035) LYMPH % (test code = 9.9 % 736-9) MONO % (test code = 8.3 % 5905-5) EOS % (test code = 0.1 % 713-8) BASO % (test code = 0.3 % 706-2) GRAN MAT x10^3(ANC) 9.45 10*3/uL 1.88-7.09 H (test code = 3126055919) IMM GRAN x10^3 (test 0.05 10*3/uL 0.00-0.06 code = 2994054682) LYMPH x10^3 (test code 1.16 10*3/uL 1.32-3.29 L = 731-0) MONO x10^3 (test code 0.97 10*3/uL 0.33-0.92 H = 742-7) EOS x10^3 (test code = <0.03 0.03-0.39 L 711-2) BASO x10^3 (test code 0.04 10*3/uL 0.01-0.07 = 704-7) Lab Interpretation Abnormal (test code = 00750-5) [facility] [id number] 17:15:00 Test Item Value Reference Range Interpretation Comments POCT PREG (test code = 1605) negative On board controls acceptable with present C Line (test code = 3574) POCT PREG LOT # (test code = 3575) [id number] POCT PREG TEST DATE (test 05/29/2022 code = 3576) Lab Interpretation (test code = Normal 90448-1) [facility]"
[2023-02-22 17:26] LABS: Specific Gravity 1.015 (1.005-1.030); Urine Bacteria None Seen /HPF (<20); Urine Bilirubin NEGATIVE (Negative); Urine Blood Negative (Negative); Urine Clarity Turbid (Clear); Urine Color Light-Yellow (Yellow); Urine Glucose NEGATIVE (Negative); Urine Mucus Slight /HPF (None Seen); Urine Protein TRACE (Negative); Urine RBC <5 /HPF (None Seen); Urine Urobilinogen Normal (Normal); Urine WBC Clump Rare /HPF (None Seen); Urine pH 5.5 (5.0-7.0)
--- NOTE | 2023-02-22 17:33 | ER ---
Nurse's Notes [facility] Name: Alycia Veronica Age: 43 yrs Sex: Female : 1980 Arrival Date: 02/22/2023 Time: 16:01 Bed 9 Private MD: Diagnosis: UTI/ Urinary tract infection, site not specified;Constipation Presentation: 02/22 16:19 Chief complaint: Patient states: Abdominal pain, constipation, N/V x 1 week. jl7 Coronavirus screen: At this time, the client does not indicate any symptoms associated with coronavirus-19. Ebola Screen: No symptoms or risks identified at this time. Initial Sepsis Screen: Does the patient meet any 2 criteria? No. Patient's initial sepsis screen is negative. Does the patient have a suspected source of infection? No. Patient's initial sepsis screen is negative. Risk Assessment: Do you want to hurt yourself or someone else? Patient reports no desire to harm self or others. Onset of symptoms is unknown. 16:19 Method Of Arrival: Ambulatory [facility] 16:19 Acuity: MELISSA 3 jl7 Triage Assessment: 16:20 General: Appears in no apparent distress. uncomfortable, Behavior is cooperative, jl7 anxious. Pain: Complains of pain in left upper quadrant and left lower quadrant Pain currently is 8 out of 10 on a pain scale. GI: Reports constipation. 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 - Social history:: Smoking status: Patient reports the use of cigarette tobacco products. Screenin:48 [facility] ED Fall Risk Assessment (Adult) History of falling in the last 3 months, ap3 including since admission No falls in past 3 months (0 pts). Abuse screen: Denies threats or abuse. Nutritional screening: No deficits noted. Tuberculosis screening: No symptoms or risk factors identified. Assessment: 17:48 GI: Abdomen is flat. ap3 Vital Signs: 16:19 BP 139 / 71; Pulse 99; Resp 17; Temp 99.3; Pulse Ox 100% ; Weight 56.7 kg; Height 5 ft. jl7 3 in. ; Pain 8/10; 16:19 Body Mass Index 22.14 (56.70 kg, 160.02 cm) jl7 16:19 Pain Scale: Adult 7 ED Course: 16:03 Patient arrived in ED. rg4 16:17 Jolie Menon FNP-C is [facility]. snw 16:17 Weston Quick MD is Attending Physician. snw 16:20 Triage completed. jl7 16:20 Arm band placed on right wrist. jl7 16:28 Cindy Oliva, RN is Primary Nurse. ap3 17:48 No provider procedures requiring assistance completed. Patient did not have IV access ap3 during this emergency room visit. 17:49 Patient has correct armband on for positive identification. Bed in low position. Call ap3 light in reach. 17:49 Provided Education on: discharge instructions . ap3 Administered Medications: 16:37 Not Given (Patient Refused): Dulcolax OH Suppository 10 mg OH once ap3 16:37 Drug: Bisacodyl PO 10 mg Route: PO; ap3 17:32 Follow up: Response: No adverse reaction ap3 16:37 Drug: Simethicone PO 240 mg Route: PO; ap3 17:32 Follow up: Response: No adverse reaction ap3 17:38 Not Given (Patient Refused): Rocephin (cefTRIAXone) IM 1 grams IM once ap3 17:48 Drug: Amoxicillin-Clavulanate PO 875 mg Route: PO; ap3 17:48 Follow up: Response: No adverse reaction ap3 Medication: 17:49 VIS not applicable for this client. ap3 Outcome: 17:33 Discharge ordered by . snw 17:48 Discharged to home ambulatory. ap3 17:48 Condition: good 17:48 Discharge instructions given to patient, Instructed on discharge instructions, follow up and referral plans. medication usage, Demonstrated understanding of instructions, follow-up care, medications, Prescriptions given X 1. 17:49 Patient left the ED. ap3 Signatures: Jolie Menon FNP-C FNP-Janell Garcia rg4 Louis Ellis RN RN jl7 Cindy Oliva RN RN ap3
--- NOTE | 2023-02-22 17:33 | EDPHYS ---
Physician Documentation [facility] Name: Alycia Veronica Age: 43 yrs Sex: Female : 1980 Arrival Date: 02/22/2023 Time: 16:01 Bed 9 Private MD: ED Physician Weston Quick HPI: 02/22 16:30 This 43 yrs old Black Female presents to ER via Ambulatory with complaints of Vomiting, snw Constipation, Runny Nose. 16:30 The patient presents with abdominal pain abdominal distention in the left lower snw quadrant. Onset: The symptoms/episode began/occurred acutely, 1 week(s) ago, and became persistent. Associated signs and symptoms: Pertinent positives: constipation. The symptoms are described as crampy. Severity of pain: At its worst the pain was moderate. It is unknown whether or not the patient has had similar symptoms in the past. It is unknown whether or not the patient has recently seen a physician. 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 - Social history:: Smoking status: Patient reports the use of cigarette tobacco products. ROS: 16:29 Constitutional: Negative for fever, chills, and weight loss, Eyes: Negative for injury, snw pain, redness, and discharge, ENT: Negative for injury, pain, and discharge, + congestion, "cold" Neck: Negative for injury, pain, and swelling, Cardiovascular: Negative for chest pain, palpitations, and edema, Respiratory: Negative for shortness of breath, cough, wheezing, and pleuritic chest pain, Back: Negative for injury and pain, : Negative for injury, bleeding, discharge, and swelling, MS/Extremity: Negative for injury and deformity, Skin: Negative for injury, rash, and discoloration, Neuro: Negative for headache, weakness, numbness, tingling, and seizure, Psych: Negative for depression, anxiety, suicide ideation, homicidal ideation, and hallucinations. 16:29 Abdomen/GI: Positive for abdominal pain, constipation, abdominal cramps. Exam: 16:29 Constitutional: This is a well developed, well nourished patient who is awake, alert, snw and in no acute distress. Head/Face: Normocephalic, atraumatic. Eyes: Pupils equal round and reactive to light, extra-ocular motions intact. Lids and lashes normal. Conjunctiva and sclera are non-icteric and not injected. Cornea within normal limits. Periorbital areas with no swelling, redness, or edema. ENT: Nares patent. No nasal discharge, no septal abnormalities noted. Tympanic membranes are normal and external auditory canals are clear. Oropharynx with no redness, swelling, or masses, exudates, or evidence of obstruction, uvula midline. Mucous membranes moist. Neck: Trachea midline, no thyromegaly or masses palpated, and no cervical lymphadenopathy. Supple, full range of motion without nuchal rigidity, or vertebral point tenderness. No Meningismus. Chest/axilla: Normal chest wall appearance and motion. Nontender with no deformity. No lesions are appreciated. Cardiovascular: Regular rate and rhythm with a normal S1 and S2. No gallops, murmurs, or rubs. Normal PMI, no JVD. No pulse deficits. Respiratory: Lungs have equal breath sounds bilaterally, clear to auscultation and percussion. No rales, rhonchi or wheezes noted. No increased work of breathing, no retractions or nasal flaring. Back: No spinal tenderness. No costovertebral tenderness. Full range of motion. 16:29 Skin: Warm, dry with normal turgor. Normal color with no rashes, no lesions, and no evidence of cellulitis. MS/ Extremity: Pulses equal, no cyanosis. Neurovascular intact. Full, normal range of motion. Neuro: Awake and alert, GCS 15, oriented to person, place, time, and situation. Cranial nerves II-XII grossly intact. Motor strength 5/5 in all extremities. Sensory grossly intact. Cerebellar exam normal. Normal gait. Psych: Awake, alert, with orientation to person, place and time. Behavior, mood, and affect are within normal limits. 16:29 Abdomen/GI: Inspection: abdomen appears normal, Bowel sounds: hyperactive, Palpation: moderate abdominal tenderness, in the left lower quadrant. Vital Signs: 16:19 BP 139 / 71; Pulse 99; Resp 17; Temp 99.3; Pulse Ox 100% ; Weight 56.7 kg; Height 5 ft. jl7 3 in. ; Pain 8/10; 16:19 Body Mass Index 22.14 (56.70 kg, 160.02 cm) jl7 16:19 Pain Scale: Adult jl7 MDM: 16:17 Patient medically screened. snw 17:35 Differential diagnosis: diverticulitis, non-specific abd pain, urinary tract infection, snw constipation. Data reviewed: vital signs, nurses notes, lab test result(s). I considered the following discharge prescriptions or medication management in the emergency department Medications were administered in the Emergency Department. See MAR. Counseling: I had a detailed discussion with the patient and/or guardian regarding the historical points, exam findings, and any diagnostic results supporting the discharge/admit diagnosis, the presence of at least one elevated blood pressure reading (>120/80) during this emergency department visit, lab results, the need for outpatient follow up, for definitive care, to return to the emergency department if symptoms worsen or persist or if there are any questions or concerns that arise at home. Response to treatment: the patient's symptoms have mildly improved after treatment. Special discussion: Based on the history and exam findings, there is no indication for further emergent testing or inpatient evaluation. I discussed with the patient/guardian the need to see the contact worker for further evaluation of the symptoms. family medicine. 02/22 16:28 Order name: Urine W/Microscopic (UAM); Complete Time: 17:31 snw 02/22 17:29 Order name: Urine Culture EDMS Administered Medications: 16:37 Not Given (Patient Refused): Dulcolax [place] Suppository 10 mg [place] once ap3 16:37 Drug: Bisacodyl PO 10 mg Route: PO; ap3 17:32 Follow up: Response: No adverse reaction ap3 16:37 Drug: Simethicone PO 240 mg Route: PO; ap3 17:32 Follow up: Response: No adverse reaction ap3 17:38 Not Given (Patient Refused): Rocephin (cefTRIAXone) IM 1 grams IM once ap3 17:48 Drug: Amoxicillin-Clavulanate PO 875 mg Route: PO; ap3 17:48 Follow up: Response: No adverse reaction ap3 Disposition Summary: 08/26/23 17:33 Discharge Ordered Location: Home snw Condition: Stable snw Diagnosis - UTI/ Urinary tract infection, site not specified snw - Constipation snw Followup: snw - With: Emergency Department - When: As needed - Reason: Worsening of condition Followup: snw - With: Private Physician - When: 2 - 3 days - Reason: Recheck today's complaints, Continuance of care, Re-evaluation by your physician Discharge Instructions: - Discharge Summary Sheet snw - Constipation, Adult snw - Urinary Tract Infection, Adult snw - Rehydration, Adult snw Forms: - Medication Reconciliation Form snw - Thank You Letter snw - Antibiotic Education snw - Prescription Opioid Use snw - Patient Portal Instructions snw - Leadership Thank You Letter snw Prescriptions: - Augmentin 875-125 mg Oral Tablet - take 1 tablet by ORAL route every 12 hours for 10 days; 20 tablet; Refills: 0, snw Product Selection Permitted Signatures: Dispatcher [employer] EDMS Jolie Menon FNP-C CREATIVE [employer] MUSIC THERAPIST-Csnw Louis Ellis RN RN jl7 Cindy Oliva RN RN ap3 Corrections: (The following items were deleted from the chart) 17:43 16:29 Stone Protocol+CT.RAD.BRZ ordered. EDMS EDMS
[2023-02-22] MEDS ORDERED: WATER FOR INJ,STERILE 10 ML ONE (17:44)
[2023-02-22] MEDS ORDERED: CEFTRIAXONE 1000 MG/VIAL ONE (17:44)
[2023-02-22] MEDS ORDERED: AMOX/K CLAV 875 MG TAB ONE (17:55)
[2023-02-22 18:25] VITALS: BP 139/71; TEMP 99.3; O2SAT 100
== END 2023-02-22 17:49 | disposition home or self-care (01) ==
LOC: ER 16:01
DX: N39.0 Urinary tract infection, site not specified (principal); K59.00 Constipation, unspecified
CPT/HCPCS: 81001; 87086; 87088; 99283; J0696

== ENCOUNTER 2023-10-30 21:07 | Emergency (ER) | payer SELFPAY ==
--- OUTSIDE RECORDS SUMMARY | 2023-10-30 21:11 | XMS REPORT | Continuity of Care Document ---
Author Name Unknown Address [address] [place] [address] [facility] thconnect Address [address] [place] [address] Care Team Providers Care Industrial Photographer Name Role Phone Soledad Gilman NP Attending Clinician [phone] Doctor Unassigned, [place] Attending Clinician U navailable Payers Payer Name Policy Type Policy Number Effective Date Expirati on Date Source MEDICARE PART A [id number] 2004 00:00:00 MEDICAID SSI PENDING PENDING 2020 00:00:00 Problems Condition Name Condition Details Condition Category Status Onset Date Resolution Date Last Treatment Date Treating Clinician Comments Source No known active problems No known active problems Disease [facility] Allergies, Adverse Reactions, Alerts Allergy Name Allergy Type Status Severity Reaction(s) Onset Date Inactive Date Treating Clinician Comments Source NO KNOWN ALLERGIE S Drug Class Active Univers [facility] Social History Social Habit Start Date Stop Date Quantity Comments Source Exposure to SARS-CoV-2 (event) Not sure [facility] Sex Assigned At 1980 00:00:00 1980 00:00:00 [facility] Smoking Status Start Date Stop Date Source Unknown if ever smoked [facility] Medications Ordered Medication Name Filled Medication Name Start Date Stop Date Current Medication? Ordering Clinician Indication Dosage Frequency Signature (SIG) Comments Components Source nicotine (NICODERM) 14 mg/24 hr patch 1 Patch 10-24 21:00: 00 Yes 1{patch } 1 Patch, Topical, Administer over 24 Hours, Q24H, First dose on Fri10/24/20 at 1600, Until Discontinu ed, Routine [facility] LORazepam (ATIVAN) injection 1 mg 10-24 18:15: 00 10-24 17:14 :00 No 1mg 1 mg, Slow IV Push, ONCE, 1 dose, Fri10/24/20 at 1315, STAT [facility] ibuprofen (IBU) tablet 600 mg 02-26 22:00: 00 02-26 21:21 :00 No 600mg 600 mg, Oral, ONCE, 1 dose, Fri02/26/19 at 1700, LUIS ANGEL [facility] ofloxacin 0.3 % otic drops 02-26 00:00: 00 Yes [id number] 4[drp] Place 4 Drops in left ear 3 (three) times daily. [facility] amoxicillin 500 mg capsule 02-26 00:00: 00 03-09 04:59 :00 No [id number] 500mg Take 1 capsule by mouth 3 (three) times daily for 10 days. [facility] cyclobenzap rine 5 mg tablet 01-23 00:00: 00 02-26 00:00 :00 No 5mg Take 1 tablet by mouth 3 (three) times daily. [facility] traMADOL (ULTRAM) 50 mg tablet 01-23 00:00: 00 02-26 00:00 :00 No 50mg Take 1 tablet by mouth every 6 (six) hours as needed for Pain (scale 4-6). [facility] pantoprazol e (PROTONIX) 40 mg EC tablet 09-05 00:00: 00 02-26 00:00 :00 No 40mg Take 1 Tab by mouth daily. [facility] Vital Signs Vital Name Observation Time Observation Value Comments Reynold kaurjorgito Systolic blood pressure 2020-10-24 19:05:00 148 mm[Hg] [facility] Diastolic blood pressure 2020-10-24 19:05:00 97 mm[Hg] [facility] Body temperature 2020-10-24 19:05:00 37.39 Stephanie [facility] Respiratory rate 2020-10-24 19:05:00 20 /min [facility] Oxygen saturation in Arterial blood by Pulse oximetry 2020-10-24 19:05:00 98 /min [facility] Heart rate 2020-10-24 16:17:21 111 /min [facility] Body weight 2020-10-24 16:07:00 58.968 kg [facility] BMI 2020-10-24 16:07:00 22.31 kg/m2 [facility] Systolic blood pressure 2020-10-24 19:05:00 148 mm[Hg] [facility] Diastolic blood pressure 2020-10-24 19:05:00 97 mm[Hg] [facility] Body temperature 2020-10-24 19:05:00 37.39 Stephanie [facility] Respiratory rate 2020-10-24 19:05:00 20 /min [facility] Oxygen saturation in Arterial blood by Pulse oximetry 2020-10-24 19:05:00 98 /min [facility] Heart rate 2020-10-24 16:17:21 111 /min [facility] Body weight 2020-10-24 16:07:00 58.968 kg [facility] BMI 2020-10-24 16:07:00 22.31 kg/m2 [facility] Systolic blood pressure 2019-02-26 20:27:00 134 mm[Hg] [facility] Diastolic blood pressure 2019-02-26 20:27:00 89 mm[Hg] [facility] Heart rate 2019-02-26 20:27:00 86 /min [facility] Body temperature 2019-02-26 20:27:00 36.67 Stephanie [facility] Respiratory rate 2019-02-26 20:27:00 18 /min [facility] Body height 2019-02-26 20:27:00 162.6 cm [facility] Body weight 2019-02-26 20:27:00 66.815 kg [facility] BMI 2019-02-26 20:27:00 25.28 kg/m2 [facility] Oxygen saturation in Arterial blood by Pulse oximetry 2019-02-26 20:27:00 99 /min [facility] Systolic blood pressure 2019-02-26 20:27:00 134 mm[Hg] [facility] Diastolic blood pressure 2019-02-26 20:27:00 89 mm[Hg] [facility] Heart rate 2019-02-26 20:27:00 86 /min [facility] Body temperature 2019-02-26 20:27:00 36.67 Stephanie [facility] Respiratory rate 2019-02-26 20:27:00 18 /min [facility] Body height 2019-02-26 20:27:00 162.6 cm [facility] Body weight 2019-02-26 20:27:00 66.815 kg [facility] BMI 2019-02-26 20:27:00 25.28 kg/m2 [facility] Oxygen saturation in Arterial blood by Pulse oximetry 2019-02-26 20:27:00 99 /min [facility] Procedures Procedure Date / Time Performed Performing Clinician Source POCT TEST 2020-10-24 17:15:00 Soledad Gilman [facility] THYROID STIMULATING HORMONE 2020-10-24 17:10:00 Soledad Gilman [facility] HEPATIC FUNCTION PANEL (00521) (ALB,T.PRO,BILI T,BU/BC,ALT,AST,ALK PHOS) 2020-10-24 17:10:00 Soledad Gilman [facility] BASIC METABOLIC PANEL (NA, K, CL, CO2, GLUCOSE, BUN, CREATININE, CA) 2020-10-24 17:10:00 Soledad Gilman [facility] SALICYLATE 2020-10-24 17:10:00 Soledad Gilman [facility] ETHANOL 2020-10-24 17:10:00 Soledad Gilman [facility] CBC WITH DIFF 2020-10-24 17:10:00 Soledad Gilman [facility] URINE DRUG (IMMUNOASSAY) - COMPREHENSIVE DRUG SCREEN 2020-10-24 16:56:00 [place] Soledad Iglesias [facility] URINALYSIS 2020-10-24 16:56:00 Soledad Gilman [facility] CONSENT/REFUSAL FOR DIAGNOSIS AND TREATMENT 2020-10-24 15:47:56 Doctor Unassigned, [place] [facility] NOTICE OF PRIVACY PRACTICES 2019-02-26 20:17:32 Doctor Unassigned, [place] [facility] CONSENT/REFUSAL FOR DIAGNOSIS AND TREATMENT 2019-02-26 20:17:18 Doctor Unassigned, [place] [facility] Encounters Start Date/Time End Date/Time Encounter Type Admission Type Attending [facility] Facility Care Department Encounter ID Source 2020-10-24 16:34:00 2020-10-24 17:00:00 Emergency X [facility] ERT [id number] [facility] 2020-10-24 11:11:00 2020-10-24 15:37:00 Emergency Soledad Gilman [facility] [id number] [id number] [id number] 2020-10-24 11:11:00 2020-10-24 15:37:00 Emergency Soledad Gilman [facility] [id number] 350.1.13.10 4.2.7.2.686 [id number] [facility] 2020-10-24 10:48:00 2020-10-24 10:48:[address] [facility] ERT [id number] [facility] 2020-10-24 00:00:00 2020-10-24 00:00:00 Orders Only Doctor Unassigned, [place] [facility] [id number] 350.1.13.10 4.2.7.2.686 [id number] 2020-10-24 00:00:00 2020-10-24 00:00:00 Orders Only Doctor Unassigned, [place] [facility] 1.2.840.114 350.1.13.10 4.2.7.2.686 [id number] [facility] 2019-02-26 15:30:21 2019-02-26 16:52:00 Emergency Soledad Gilman [facility] [id number] [id number] 4.2.7.2.686 [id number] [facility] 2019-02-26 15:30:21 2019-02-26 16:52:00 Emergency Soledad Gilman [facility] [id number] 4.2.7.2.686 [id number] Results Test Description Test Time Test Comments Results Result Co mments Source [facility] [id number] 18:45:09 * Test Item Value Reference Range Interpretation Comme nts TSH (test code = 2581613590) See_Comment [Automated [employer]] The system which generated this result transmitted reference range: 0.45 - 4.70 mIU/L. The reference range was not used to interpret this result as normal/abnormal. Lab Interpretation (test code = 74358-5) Normal [facility]2021-[facility] 18:22:06* Test Item Value Reference Range Interpretation Comme nts ALCOHOL (test code = 7470669840) <10 mg/dL GLENN (test code = GLENN) <10 [id number] Toxic>100 Depression of VALIDATION ANALYST>400 Fatalities Reported [facility]EN2021-04-27 18:22:06* Test Item Value Reference Range Interpretation Comme nts ACETAMINOP (test code = 6726965979) <10.0 10.0-30.0 L GLENN (test code = GLENN) Toxic: Greater baldemar n 200 ug/mL @ 4 hour post ingestion or greater than 50 ug/mL @ 12 hour post ingestion Lab Interpretation (test code = 84717-5) Abnormal [facility]ATE2021-04-27 18:22:06* Test Item Value Reference Range Interpretation Comme nts SALICYLATE (test code = 2600221347) <10 mg/L GLENN (test code = GLENN) Therapeutic Range: ? Analgesic and Antipyretic Use ? 20-100 mg/L ? ? Anti-Inflammatory Use ? 100-250 mg/L Toxic Range: ? Greater than 300 mg/L [facility] (ALB, T.PRO, BILI T, BU/BC, ALT, AST, ALK PHOS)2020-10-24 18:14:16* Test Item Value Reference Range Interpretation Comme nts TOTAL BILI (test code = 9041997461) 1.0 mg/dL 0.1-1.1 BILI UNCON (test code = 6933357616) 0.8 mg/dL 0.1-1.1 BILI CONJ (test code = 6195909679) 0.0 mg/dL 0.0-0.3 T PROTEIN (test code = 9462611065) 8.3 g/dL 6.3-8.2 H ALBUMIN (test code = 0528971456) 5.2 g/dL 3.5-5.0 H ALK PHOS (test code = 9776769338) 49 U/L 34-122 ALTv (test code = 1742-6) 34 U/L 5-35 AST(SGOT) (test code = 2861667302) 42 U/L 13-40 H Lab Interpretation (test cod e = 93291-3) Abnormal [facility] (NA, K, CL, CO2, GLUCOSE, BUN, CREATININE, CA)2020-10-24 18:13:56* Test Item Value Reference Range Interpretation Comme nts NA (test code = 0482509783) 136 mmol/L 135-145 K (test code = 5475247096) 3.9 mmol/L 3.5-5.0 CL (test code = 1594402824) 99 mmol/L 98-108 CO2 TOTAL (test code = 3134561210) 26 mmol/L 23-31 AGAP (test code = 7242204048) 2-16 BUN (test code = 6232683205) 8 mg/dL 7-23 GLUCOSE (test code = 4112913130) 104 mg/dL 70-110 CREATININE (test code = 6615889128) 0.75 mg/dL 0.50-1.04 CALCIUM (test code = 9576192278) 10.5 mg/dL 8.6-10.6 eGFR (test code = 4645345864) mL/min/1.73m2 GLENN (test code = GLENN) Association of [...] or urine or abnormalities in imaging tests). [facility] [id number] 17:58:39* Test Item Value Reference Range Interpretation Comme nts APPEARANCE (test code = 2386258239) Cloudy Clear A COLOR (test code = 7378371637) Em Yellow A PH (test code = 3079282934) 4.8-8.0 SP GRAVITY (test code = 2515730964) 1.003-1.030 GLU U QUAL (test code = 1677053128) Normal Normal BLOOD (test code = 1481260873) 1+ Negative A KETONES (test code = 6951181945) 5 mg/dL Negative A PROTEIN (test code = 2887-8) 100 mg/dL Negative A UROBILIN (test code = 7081940425) 2.0 mg/dL Normal A BILIRUBIN (test code = 1568445725) Negative Negative NITRITE (test code = 2030412347) Negative Negative LEUK JERROD (test code = 0138887864) Negative Negative RBC/HPF (test code = 5748351486) See_Comment H [Automated messa ge] The system which generated this result transmitted reference range: 0 - 3 HPF. The reference range was not used to interpret this result as normal/abnormal. WBC/HPF (test code = 3381906646) See_Comment H [Automated messa ge] The system which generated this result transmitted reference range: 0 - 5 HPF. The reference range was not used to interpret this result as normal/abnormal. BACTERIA (test code = 9757639762) Few Negative A MUCOUS (test code = 3571657767) Marked Negative LPF A SQ EPITH (test code = 8088294415) HPF HYAL CAST (test code = 6165568241) See_Comment H [Automated messa ge] The system which generated this result transmitted reference range: <=2 LPF. The reference range was not used to interpret this result as normal/abnormal. Lab Interpretation (test code = 59338-1) Abnormal [facility] with [id number] 17:32:17* Test Item Value Reference Range Interpretation Comme nts WBC (test code = 6690-2) See_Comment H [Automated messa ge] The system which generated this result transmitted reference range: 4.30 - 11.10 10*3/?L. The reference range was not used to interpret this result as normal/abnormal. RBC (test code = 789-8) See_Comment [Automated messa ge] The system which generated this result transmitted reference range: 3.93 - 5.25 10*6/?L. The reference range was not used to interpret this result as normal/abnormal. HGB (test code = 718-7) 14.8 g/dL 11.6-15.0 HCT (test code = 4544-3) 42.3 % 35.7-45.2 MCV (test code = 787-2) 91.0 fL 80.6-95.5 MCH (test code = 785-6) 31.8 pg 25.9-32.8 MCHC (test code = 786-4) 35.0 g/dL 31.6-35.1 RDW-SD (test code = 77271-0) 41.3 fL 39.0-49.9 RDW-CV (test code = 788-0) 12.6 % 12.0-15.5 PLT (test code = 777-3) See_Comment [Automated [employer]] The system which generated this result transmitted reference range: 166 - 358 10*3/?L. The reference range was not used to interpret this result as normal/abnormal. MPV (test code = 42129-2) 10.5 fL 9.5-12.9 IPF % (test code = 6312916314) 4.9 % 1.3-7.7 Platelet count measured by fluorescence method. NRBC/100 WBC (test code = 4178842841) See_Comment [Automated [employer] ssage] The system which generated this result transmitted reference range: 0.0 - 10.0 /100 WBCs. The reference range was not used to interpret this result as normal/abnormal. NRBC x10^3 (test code = 6253911975) <0.01 See_Comment [Automated [employer] [place] [employer]] The system which generated this result transmitted reference range: 10*3/?L. The reference range was not used to interpret this result as normal/abnormal. GRAN MAT (NEUT) % (test code = 770-8) 81.0 % IMM GRAN % (test code = 2977358295) 0.40 % LYMPH % (test code = 736-9) 9.9 % MONO % (test code = 5905-5) 8.3 % EOS % (test code = 713-8) 0.1 % BASO % (test code = 706-2) 0.3 % GRAN MAT x10^3(ANC) (test code = 4694005503) 9.45 10*3/uL 1.88-7.09 H IMM GRAN x10^3 (test code = 1718303034) 0.05 10*3/uL 0.00-0.06 LYMPH x10^3 (test code = 731-0) 1.16 10*3/uL 1.32-3.29 L MONO x10^3 (test code = 742-7) 0.97 10*3/uL 0.33-0.92 H EOS x10^3 (test code = 711-2) <0.03 0.03-0.39 L BASO x10^3 (test code = 704-7) 0.04 10*3/uL 0.01-0.07 Lab Interpretation (test code = 14983-5) [facility]normal [facility] [id number] 17:15:00* Test Item Value Reference Range Interpretation Comme nts POCT PREG (test code = 1605) negative On board controls acceptable with C Line (test code = 3574) present POCT PREG LOT # (test code = 3575) [id number] POCT PREG TEST DATE ( test code = 3576) 05/29/2022 Lab Interpretation (test cod e = 56123-8) Normal [facility]"
[2023-10-30 22:36] LABS: Specific Gravity 1.009 (1.005-1.030)
[2023-10-30 22:40] LABS: Specific Gravity 1.009 (1.005-1.030); Urine Bacteria <20 /HPF (<20); Urine Bilirubin NEGATIVE (Negative); Urine Blood Negative (Negative); Urine Clarity Extremely Turbid (Clear); Urine Color Light-Yellow (Yellow); Urine Culture Reflex Order REFLEXED; Urine Glucose NEGATIVE (Negative); Urine Ketones NEGATIVE (Negative); Urine Microscopic Reflex YN ORDER UMIC; Urine Mucus Slight /HPF (None Seen); Urine Nitrite NEGATIVE (Negative); Urine Protein NEGATIVE (Negative); Urine Trichomonas Present /HPF (None Seen); Urine Urobilinogen Normal (Normal)
[2023-10-30] MEDS ORDERED: LIDOCAINE 1% MPF 2 ML AMPULE ONE (23:00)
[2023-10-30] MEDS ORDERED: CEFTRIAXONE 1000 MG/VIAL ONE (23:00)
[2023-10-30] MEDS ORDERED: AZITHROMYCIN 250 MG TAB ONE (23:00)
[2023-10-30] MEDS ORDERED: DOXYCYCLINE 100 MG CAP PO ONE (23:00)
[2023-10-30] MEDS ORDERED: VALACYCLOVIR 500 MG TAB ONE (23:02)
--- NOTE | 2023-10-30 23:07 | EDPHYS ---
Physician Documentation [facility] Name: Alycia Veronica Age: 43 yrs Sex: Female : 1980 Arrival Date: 10/30/2023 Time: 21:07 Bed 11 Private MD: SANDRA Physician Weston Quick HPI: 10/29 23:00 This 43 yrs old Black Female presents to ER via Ambulatory with complaints of vaginal dayami problem with bumps and irritation. 23:00 The patient presents with a possible exposure to a sexually transmitted disease, dayami herpes, urinary symptoms, dysuria. Onset: The symptoms/episode began/occurred 5 day(s) ago. Modifying factors: The symptoms are alleviated by nothing, the symptoms are aggravated by nothing. Associated signs and symptoms: The patient has no apparent associated signs or symptoms. Severity of symptoms: At their worst the symptoms were mild, in the emergency department the symptoms are unchanged. The patient is sexually active, reportedly has a single partner. The patient has not experienced similar symptoms in the past. 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 - Infectious Disease History:: Denies. - Social history:: Smoking status: Patient reports the use of cigarette tobacco products, smokes one pack cigarettes per day. ROS: 23:01 Constitutional: Negative for fever, chills, and weight loss, Eyes: Negative for injury, dayami pain, redness, and discharge, ENT: Negative for injury, pain, and discharge, Neck: Negative for injury, pain, and swelling, Cardiovascular: Negative for chest pain, palpitations, and edema, Respiratory: Negative for shortness of breath, cough, wheezing, and pleuritic chest pain, Abdomen/GI: Negative for abdominal pain, nausea, vomiting, diarrhea, and constipation, Back: Negative for injury and pain, MS/Extremity: Negative for injury and deformity, Skin: Negative for injury, rash, and discoloration, Neuro: Negative for headache, weakness, numbness, tingling, and seizure, Psych: Negative for depression, anxiety, suicide ideation, homicidal ideation, and hallucinations, Allergy/Immunology: Negative for hives, rash, and allergies, Endocrine: Negative for neck swelling, polydipsia, polyuria, polyphagia, and marked weight changes, Hematologic/Lymphatic: Negative for swollen nodes, abnormal bleeding, and unusual bruising, 23:01 : Positive for pelvic pain, burning with urination, vaginal itching, 23:01 Skin: Positive for lesions, ulceration, of the right labia majora, left labia majora, right labia minora and left labia minora, Exam: 23:01 Constitutional: This is a well developed, well nourished patient who is awake, alert, dayami and in no acute distress. Head/Face: Normocephalic, atraumatic. Eyes: Pupils equal round and reactive to light, extra-ocular motions intact. Lids and lashes normal. Conjunctiva and sclera are non-icteric and not injected. Cornea within normal limits. Periorbital areas with no swelling, redness, or edema. ENT: Nares patent. No nasal discharge, no septal abnormalities noted. Tympanic membranes are normal and external auditory canals are clear. Oropharynx with no redness, swelling, or masses, exudates, or evidence of obstruction, uvula midline. Mucous membranes moist. Neck: Trachea midline, no thyromegaly or masses palpated, and no cervical lymphadenopathy. Supple, full range of motion without nuchal rigidity, or vertebral point tenderness. No Meningismus. Chest/axilla: Normal chest wall appearance and motion. Nontender with no deformity. No lesions are appreciated. Cardiovascular: Regular rate and rhythm with a normal S1 and S2. No gallops, murmurs, or rubs. Normal PMI, no JVD. No pulse deficits. Respiratory: Lungs have equal breath sounds bilaterally, clear to auscultation and percussion. No rales, rhonchi or wheezes noted. No increased work of breathing, no retractions or nasal flaring. Abdomen/GI: Soft, non-tender, with normal bowel sounds. No distension or tympany. No guarding or rebound. No evidence of tenderness throughout. Back: No spinal tenderness. No costovertebral tenderness. Full range of motion. Skin: Warm, dry with normal turgor. Normal color with no rashes, no lesions, and no evidence of cellulitis. MS/ Extremity: Pulses equal, no cyanosis. Neurovascular intact. Full, normal range of motion. Neuro: Awake and alert, GCS 15, oriented to person, place, time, and situation. Cranial nerves II-XII grossly intact. Motor strength 5/5 in all extremities. Sensory grossly intact. Cerebellar exam normal. Normal gait. Psych: Awake, alert, with orientation to person, place and time. Behavior, mood, and affect are within normal limits. 23:01 : CVA tenderness, is absent, Pelvic Exam: External exam: erythema is noted, reveals ulcerations on external genitalia, Vital Signs: 21:22 BP 134 / 95; Pulse 93; Resp 17 S; Temp 97.9(T); Pulse Ox 100% on R/A; Weight 81.65 kg; ha1 [place] Coma Score: 22:24 Eye Response: spontaneous(4). Motor Response: obeys commands(6). Verbal Response: km8 oriented(5). Total: 15. MDM: 21:19 Patient medically screened. [facility] 23:03 Differential diagnosis: nonspecific abdominal pain, urinary tract infection. Data [facility] reviewed: vital signs, nurses notes, lab test result(s), urinalysis. Consideration of Admission/Observation Escalation of care including admission/observation considered. I considered the following discharge prescriptions or medication management in the emergency department Medications were administered in the Emergency Department. See MAR. Test considered but Not performed: Labs: no labs. Historians other than the Patient: pt well informed. Care significantly affected by the following chronic conditions: Hypertension, Obesity, bipolar, schizo. 10/29 21:19 Order name: Urinalysis w/ reflexes; Complete Time: 22:55 [facility] 10/29 21:19 Order name: PREGU; Complete Time: 22:55 [facility] 10/29 22:44 Order name: Urine Culture EDMS Administered Medications: 23:09 Drug: Valtrex PO 1000 mg PO once Route: PO; km8 23:26 Follow up: Response: No adverse reaction km8 23:09 Not Given (Patient Refused): rocephin (ceftriaxone)1 grams IM once km8 23:09 Drug: AZITHromycin PO 1 grams PO once Route: PO; km8 23:26 Follow up: Response: No adverse reaction km8 23:09 Drug: Doxycycline PO 200 mg PO once Route: PO; km8 23:26 Follow up: Response: No adverse reaction km8 Disposition Summary: 10/30/23 23:06 Discharge Ordered Notes: Location: Home [facility] Problem: new [facility] Symptoms: have improved [facility] Condition: Stable [facility] Diagnosis - 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 dayami - Herpesviral infection, unspecified [facility] - UTI/ Urinary tract infection, site not specified [facility] Followup: [facility] - With: Private Physician - When: 2 - 3 days - Reason: Recheck today's complaints, Continuance of care, Re-evaluation by your physician Discharge Instructions: - Discharge Summary Sheet [facility] - Dysuria [facility] - Genital Herpes [facility] - How to Take a Sitz Bath [facility] - Urinary Tract Infection, Adult [facility] - Urinary Tract Infection, Adult, [id number] [facility] - Preventing Sexually Transmitted Infections, Adult [facility] Forms: - Medication Reconciliation Form [facility] - Antibiotic Education [facility] - Prescription Opioid Use [facility] - Patient Portal Instructions [facility] - Leadership Thank You Letter [facility] Prescriptions: - Valtrex 1 gram Oral tablet - take 1 tablet ORAL route 3 times per day; 21 tablet; Refills: 0, Product [facility] Selection Permitted - Cipro 500 mg Oral Tablet - take 1 tablet ORAL route every 12 hours for 7 days; 14 tablet; Refills: 0, [facility] Product Selection Permitted Signatures: Dispatcher [employer] EDMS Weston Quikc MD MD cha Ayala, Heidy, RN RN ha1 Rebeca Wood RN RN km8 Corrections: (The following items were deleted from the chart) 23:00 23:00 Wound Culture+[id number].BRZ ordered. EDIL EDMS
--- NOTE | 2023-10-30 23:07 | ER ---
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 Coronavirus screen: Vaccine status: Patient reports being unvaccinated. Ebola Screen: No symptoms or risks identified at this time. Initial Sepsis Screen: Does the patient meet any 2 criteria? No. Patient's initial sepsis screen is negative. Does the patient have a suspected source of infection? No. Patient's initial sepsis screen is negative. Risk Assessment: Do you want to hurt yourself or someone else? Patient reports no desire to harm self or others. Onset of symptoms was October 30, 2023. 21:22 Method Of Arrival: Ambulatory ha1 21:22 Acuity: MELISSA 4 ha1 Triage Assessment: 21:25 General: Appears comfortable, Behavior is calm, cooperative. Pain: Complains of pain in ha1 vaginal area. Neuro: Level of Consciousness is awake, alert, obeys commands, Oriented to person, place, time, situation. Cardiovascular: Patient's skin is warm and dry. Respiratory: Airway is patent Respiratory effort is even, unlabored, Respiratory pattern is regular, symmetrical. : Reports vaginal blisters. 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 - Infectious Disease History:: Denies. - Social history:: Smoking status: Patient reports the use of cigarette tobacco products, smokes one pack cigarettes per day. Screenin:24 [facility] ED Fall Risk Assessment (Adult) History of falling in the last 3 months, km8 including since admission No falls in past 3 months (0 pts) Confusion or Disorientation No (0 pts) Intoxicated or Sedated No (0 pts) Impaired Gait No (0 pts) Mobility Assist Device Used No (0 pt) Altered Elimination No (0 pt) Score/Fall Risk Level 0 - 2 = Low Risk Oriented to surroundings, Maintained a safe environment, Educated pt \T\ family on fall prevention, incl call for assistance when getting out of bed, Assessed \T\ reinforced patient's understanding of fall precautions. Abuse screen: Denies threats or abuse. Denies injuries from another. Nutritional screening: No deficits noted. Tuberculosis screening: No symptoms or risk factors identified. Assessment: 22:24 General: Appears in no apparent distress. comfortable, Behavior is calm, cooperative, km8 appropriate for age. Pain: Complains of pain in vaginal area Pain currently is 5 out of 10 on a pain scale. Neuro: Level of Consciousness is awake, alert, obeys commands, Oriented to person, place, time, situation. Cardiovascular: Denies chest pain, shortness of breath, Patient's skin is warm and dry. Respiratory: Airway is patent Respiratory effort is even, unlabored, Respiratory pattern is regular, symmetrical. GI: No signs and/or symptoms were reported involving the gastrointestinal system. : Reports pain in suprapubic area vaginal itching, Denies burning with urination, vaginal bleeding. EENT: No signs and/or symptoms were reported regarding the EENT system. Derm: No signs and/or symptoms reported regarding the dermatologic system. Skin is intact, is healthy with good turgor, Skin is dry, Skin is pink, warm \T\ dry. normal, Skin temperature is warm. Musculoskeletal: No signs and/or symptoms reported regarding the musculoskeletal system. Range of motion: intact in all extremities. Vital Signs: 21:22 BP 134 / 95; Pulse 93; Resp 17 S; Temp 97.9(T); Pulse Ox 100% on R/A; Weight 81.65 kg; ha1 [place] Coma Score: 22:24 Eye Response: spontaneous(4). Motor Response: obeys commands(6). Verbal Response: km8 oriented(5). Total: 15. ED Course: 21:11 Patient arrived in ED. ra3 21:19 Weston Quick MD is Attending Physician. dayami 21:25 Triage completed. ha1 22:14 Rebeca Wood RN is Primary Nurse. km8 22:24 Patient has correct armband on for positive identification. Placed in gown. Bed in low km8 position. Call light in reach. Side rails up X 1. Pulse ox on. NIBP on. Warm blanket given. : Arm band placed on right wrist. 22:30 PREGU Sent. : Urinalysis w/ reflexes Sent. 8 :30 Urine collected: clean catch specimen, clear. 8 23:26 Provided Education on: d/c teaching. 23: Wound Culture: hsv culture Sent. 8 23: No provider procedures requiring assistance completed. Patient did not have IV access km8 during this emergency room visit. Administered Medications: 23:09 Drug: Valtrex PO 1000 mg PO once Route: PO; 23:26 Follow up: Response: No adverse reaction 23: Not Given (Patient Refused): rocephin (ceftriaxone)1 grams IM once 8 23:09 Drug: AZITHromycin PO 1 grams PO once Route: PO; km8 23:26 Follow up: Response: No adverse reaction 23:09 Drug: Doxycycline PO 200 mg PO once Route: PO; 8 23:26 Follow up: Response: No adverse reaction 8 Medication: 22:24 VIS not applicable for this client. km8 Outcome: 23:06 Discharge ordered by . dayami 23:27 Discharged to home ambulatory, 23:27 Condition: good 23:27 Discharge instructions given to patient, Instructed on discharge instructions, follow up and referral plans. medication usage, Demonstrated understanding of instructions, follow-up care, medications, Prescriptions given X 2, 23:28 Patient left the ED. 8 Signatures: Weston Quick MD MD cha Ayala, Heidy, RN RN ha1 Rebeca Wood RN RN km8 Michaelle Blancas ra3 Corrections: (The following items were deleted from the chart) : 22:24 Pain: Denies pain. 8 :30 22:24 : Reports pain in suprapubic area vaginal itching, km8 km8
[2023-10-30 23:54] VITALS: BP 134/95; TEMP 97.9; O2SAT 100
== END 2023-10-30 23:28 | disposition home or self-care (01) ==
LOC: ER 21:07
DX: A60.09 Herpesviral infection of other urogenital tract (principal); N39.0 Urinary tract infection, site not specified
CPT/HCPCS: 81001; 81025; 87086; 87088; 87255; 99284; J0696

== ENCOUNTER 2024-07-01 18:54 | Emergency (ER) | payer SELFPAY ==
--- OUTSIDE RECORDS SUMMARY | 2024-07-01 18:56 | XMS REPORT | Continuity of Care Document ---
Author Name Unknown Address [address] [facility] [address] [place] [address] [facility] thconnect Address [address] [facility] [address] [place] [address] Care Team Providers Care Inspector Wire Rope Name Role Phone Sommer Yun NP Primary Care Physician MOHAMUD GILMAN Attending Clinician Unavailable MOHAMUD GILMAN Attending Clinician Unavailable Doctor Unassigned, [place] Attending Clinician U navailable Payers Payer Name Policy Type Policy Number Effective Date Expirati on Date Source MEDICAID SSI PENDING PENDING 2024 00:00:00 Problems Condition Name Condition Details Condition Category Status Onset Date Resolution Date Last Treatment Date Treating Clinician Comments Source No known active problems No known active problems Disease [facility] Allergies, Adverse Reactions, Alerts Allergy Name Allergy Type Status Severity Reaction(s) Onset Date Inactive Date Treating Clinician Comments Source none (Not Checked) Propensi ty to adverse reaction to drug Active 01-11 00:00: 00 Jas Smith NO KNOWN ALLERGIE S Drug Class Active [facility] Social History Social Habit Start Date Stop Date Quantity Comments Source Exposure to SARS-CoV-2 (event) Not sure [facility] Sexual orientation U [facility] Sex assigned at 1980 00:00:00 1980 00:00:00 [facility] Smoking Status Start Date Stop Date Source Tobacco smoking consumption unknown [facility] Medications Ordered Medication Name Filled Medication Name Start Date Stop Date Current Medication? Ordering Clinician Indication Dosage Frequency Signature (SIG) Comments Components Source valACYclovi r (VALTREX) tablet 1,000 mg 01-22 01:30: 00 01-22 00:53 :00 No 1000mg 1,000 mg, Oral, ONCE, 1 dose, On Diana 01/22/24 at 2030, LUIS ANGEL [facility] cefTRIAXone (ROCEPHIN) 250 mg in lidocaine 1% (PF) (XYLOCAINE) 0.714 mL PEDIATRIC Infusion 01-22 01:30: 00 01-22 01:36 :00 No [id number] 250mg Intramuscu lar, ONCE, 1 dose, On Diana 01/22/24 at 2030, 0.714 mL, Reason for Anti-Infec tive: Empiric Therapy for Suspected Infection, Empiric Therapy Site: Pelvic, Duration of therapy: Once (ED) [facility] doxycycline hyclate (Vibramycin ) capsule 100 mg 01-22 00:45: 00 01-22 00:51 :00 No [id number] 100mg 100 mg, Oral, ONCE, 1 dose, On Diana 01/22/24 at 1945, LUIS ANGEL, Reason for Anti-Infec tive: Documented Infection, Documented Infection Site: Pelvic, Duration of Therapy: Once (ED) [facility] doxycycline hyclate 100 mg capsule 01-21 00:00: 00 Yes [id number] 100mg Take 1 capsule by mouth in the morning and 1 capsule in the evening. [facility] mupirocin 2 % ointment 01-21 00:00: 00 Yes [id number] Apply to area(s) 3 (three) times daily. [facility] valACYclovi r 1 gram tablet 01-21 00:00: 00 01-29 04:59 :00 No [id number] 1g Take 1 tablet by mouth in the morning and 1 tablet in the evening. Do all this for 7 days. [facility] triamcinolo ne acetonide 0.1 % topical cream 01-11 00:00: 00 Yes 1% Jas Smith mupirocin 2 % topical ointment 01-11 00:00: 00 Yes 1% Jas F Luis cetirizine 10 mg tablet 01-11 00:00: 00 Yes 1mg Jas Smith valacyclovi r 1 gram tablet 12-27 00:00: 00 Yes gram Jas Smith nicotine (NICODERM) 14 mg/24 hr patch 1 Patch 10-24 21:00: 00 Yes 1{patch } 1 Patch, Topical, Administer over 24 Hours, Q24H, First dose on Fri10/24/20 at 1600, Until Discontinu ed, Routine [facility] LORazepam (ATIVAN) injection 1 mg 10-24 18:15: 00 10-24 17:14 :00 No 1mg 1 mg, Slow IV Push, ONCE, 1 dose, Fri10/24/20 at 1315, STAT [facility] ibuprofen (IBU) tablet 600 mg 02-26 22:00: 00 02-26 21:21 :00 No 600mg 600 mg, Oral, ONCE, 1 dose, Fri02/26/19 at 1700, LUIS ANGEL [facility] ofloxacin 0.3 % otic drops 02-26 00:00: 00 Yes [id number] 00660 4[drp] Place 4 Drops in left ear 3 (three) times daily. [facility] amoxicillin 500 mg capsule 02-26 00:00: 00 03-09 04:59 :00 No [id number] 500mg Take 1 capsule by mouth 3 (three) times daily for 10 days. [facility] Flagyl 500 mg tablet 2016-06 00:00: 00 Yes 1mg Jas Smith cyclobenzap rine 5 mg tablet 01-23 00:00: 00 02-26 00:00 :00 No 5mg Take 1 tablet by mouth 3 (three) times daily. [facility] traMADOL (ULTRAM) 50 mg tablet 01-23 00:00: 00 02-26 00:00 :00 No 50mg Take 1 tablet by mouth every 6 (six) hours as needed for Pain (scale 4-6). [facility] pantoprazol e (PROTONIX) 40 mg EC tablet 09-05 00:00: 00 02-26 00:00 :00 No 40mg Take 1 Tab by mouth daily. [facility] Vital Signs Vital Name Observation Time Observation Value Comments Reynold carr Systolic blood pressure 2024-01-23 01:39:00 123 mm[Hg] [facility] Diastolic blood pressure 2024-01-23 01:39:00 78 mm[Hg] [facility] Heart rate 2024-01-23 01:39:00 98 /min [facility] Body temperature 2024-01-23 01:39:00 36.67 Stephanie [facility] Respiratory rate 2024-01-23 01:39:00 15 /min [facility] Oxygen saturation in Arterial blood by Pulse oximetry 2024-01-23 01:39:00 100 /min [facility] Body height 2024-01-22 19:45:00 162.6 cm [facility] Body weight 2024-01-22 19:45:00 68.04 kg [facility] BMI 2024-01-22 19:45:00 25.75 kg/m2 [facility] Systolic blood pressure 2020-10-24 19:05:00 148 mm[Hg] [facility] Diastolic blood pressure 2020-10-24 19:05:00 97 mm[Hg] [facility] Body temperature 2020-10-24 19:05:00 37.39 Stephanie [facility] Respiratory rate 2020-10-24 19:05:00 20 /min [facility] Oxygen saturation in Arterial blood by Pulse oximetry 2020-10-24 19:05:00 98 /min [facility] Heart rate 2020-10-24 16:17:21 111 /min [facility] Body weight 2020-10-24 16:07:00 58.968 kg [facility] BMI 2020-10-24 16:07:00 22.31 kg/m2 [facility] Systolic blood pressure 2020-10-24 19:05:00 148 mm[Hg] [facility] Diastolic blood pressure 2020-10-24 19:05:00 97 mm[Hg] [facility] Body temperature 2020-10-24 19:05:00 37.39 Stephanie [facility] Respiratory rate 2020-10-24 19:05:00 20 /min [facility] Oxygen saturation in Arterial blood by Pulse oximetry 2020-10-24 19:05:00 98 /min [facility] Heart rate 2020-10-24 16:17:21 111 /min [facility] Body weight 2020-10-24 16:07:00 58.968 kg [facility] BMI 2020-10-24 16:07:00 22.31 kg/m2 [facility] Systolic blood pressure 2019-02-26 20:27:00 134 mm[Hg] [facility] Diastolic blood pressure 2019-02-26 20:27:00 89 mm[Hg] [facility] Heart rate 2019-02-26 20:27:00 86 /min [facility] Body temperature 2019-02-26 20:27:00 36.67 Stephanie [facility] Respiratory rate 2019-02-26 20:27:00 18 /min [facility] Body height 2019-02-26 20:27:00 162.6 cm [facility] Body weight 2019-02-26 20:27:00 66.815 kg [facility] BMI 2019-02-26 20:27:00 25.28 kg/m2 [facility] Oxygen saturation in Arterial blood by Pulse oximetry 2019-02-26 20:27:00 99 /min [facility] Systolic blood pressure 2019-02-26 20:27:00 134 mm[Hg] [facility] Diastolic blood pressure 2019-02-26 20:27:00 89 mm[Hg] [facility] Heart rate 2019-02-26 20:27:00 86 /min [facility] Body temperature 2019-02-26 20:27:00 36.67 Stephanie [facility] Respiratory rate 2019-02-26 20:27:00 18 /min [facility] Body height 2019-02-26 20:27:00 162.6 cm [facility] Body weight 2019-02-26 20:27:00 66.815 kg [facility] BMI 2019-02-26 20:27:00 25.28 kg/m2 [facility] Oxygen saturation in Arterial blood by Pulse oximetry 2019-02-26 20:27:00 99 /min [facility] Heart Rate 2024-01-12 13:50:00 100.00 /min Step hen F Luis Respiratory Rate 2024-01-12 13:50:00 16.00 /min Jas F Luis BP Systolic 2024-01-12 13:50:00 118 mm[Hg] Step hen F Luis BP Diastolic 2024-01-12 13:50:00 80 mm[Hg] Erich phen F Luis Weight Measured 2024-01-12 13:50:00 150.00 pounds Jas F Luis Height Measured 2024-01-12 13:50:00 61.00 inches Jas F Luis Body Temperature 2024-01-12 13:50:00 97.00 degrees Jas F Luis BP Systolic 2017-04-09 11:06:00 130 mm[Hg] Step hen F Luis BP Diastolic 2017-04-09 11:06:00 84 mm[Hg] Erich phen F Luis Weight Measured 2017-04-09 11:06:00 135.60 pounds Jas F Luis Height Measured 2017-04-09 11:06:00 64.00 inches Jas F Luis Body Temperature 2017-04-09 11:06:00 98.20 degrees Jas F Luis Heart Rate 2017-04-09 11:06:00 95.00 /min Altagracia en F Luis Respiratory Rate 2017-04-09 11:06:00 Jas Randy Smith Procedures Procedure Date / Time Performed Performing Clinician Source POCT TEST 2024-01-22 22:03:00 Mohamud Gilman [facility] URINALYSIS 2024-01-22 22:00:00 Mohamud Gilman [facility] HIV 1/2 AG-AB WITH REFLEX 2024-01-22 22:00:00 Mohamud Gilman [facility] POCT TEST 2020-10-24 17:15:00 Mohamud Gilman [facility] THYROID STIMULATING HORMONE 2020-10-24 17:10:00 Mohamud Gilman [facility] HEPATIC FUNCTION PANEL (89146) (ALB,T.PRO,BILI T,BU/BC,ALT,AST,ALK PHOS) 2020-10-24 17:10:00 Mohamud Gilman [facility] BASIC METABOLIC PANEL (NA, K, CL, CO2, GLUCOSE, BUN, CREATININE, CA) 2020-10-24 17:10:00 Mohamud Gilman [facility] SALICYLATE 2020-10-24 17:10:00 Mohamud Gilman [facility] ETHANOL 2020-10-24 17:10:00 Mohamud Gilman [facility] CBC WITH DIFF 2020-10-24 17:10:00 Mohamud Gilman [facility] URINE DRUG (IMMUNOASSAY) - COMPREHENSIVE DRUG SCREEN 2020-10-24 16:56:00 Mohamud Gilman [facility] URINALYSIS 2020-10-24 16:56:00 Mohamud Gilman [facility] CONSENT/REFUSAL FOR DIAGNOSIS AND TREATMENT 2020-10-24 15:47:56 Doctor Unassigned, [place] [facility] NOTICE OF PRIVACY PRACTICES 2019-02-26 20:17:32 Doctor Unassigned, [place] [facility] CONSENT/REFUSAL FOR DIAGNOSIS AND TREATMENT 2019-02-26 20:17:18 Doctor Unassigned, [place] [facility] Encounters Start Date/Time End Date/Time Encounter Type Admission Type Attending [facility] Care Facility Care Department Encounter ID Source 2024-01-22 14:46:00 2024-01-22 20:42:00 Emergency X MOHAMUD GILMAN [facility] [id number] [facility] 2024-01-22 14:46:00 2024-01-22 20:42:00 Emergency Mohamud Gilman AT [facility] 1.2.840.114 350.1.13.10 4.2.7.2.686 [id number] [facility] 2024-01-12 13:44:43 2024-01-12 13:44:43 Outpatient [facility] [id number] Jas Smith 2024-01-12 00:00:00 2024-01-12 00:00:00 Outpatient Visit [facility] [id number] Jas Smith 2020-10-24 16:34:00 2020-10-24 17:00:00 Emergency X [facility] E[facility] [id number] [facility] 2020-10-24 11:11:00 2020-10-24 15:37:00 Emergency Mohamud Gilman [facility] 1.2.840.114 350.1.13.10 4.2.7.2.686 [id number] 2020-10-24 11:11:00 2020-10-24 15:37:00 Emergency Mohamud Gilman [facility] 1.2.840.114 350.1.13.10 4.2.7.2.686 [id number] [facility] 2020-10-24 10:48:00 2020-10-24 10:48:00 Emergency X [facility] [id number] [facility] 2020-10-24 00:00:00 2020-10-24 00:00:00 Orders Only Doctor Unassigned, [place] [facility] 1.2.840.114 350.1.13.10 4.2.7.2.686 [id number] 2020-10-24 00:00:00 2020-10-24 00:00:00 Orders Only Doctor Unassigned, [place] [facility] 1.2.840.114 350.1.13.10 4.2.7.2.686 [id number] [facility] 2019-02-26 15:30:21 2019-02-26 16:52:00 [facility] 1.2.840.114 350.1.13.10 4.2.7.2.686 [id number] 2019-02-26 15:30:21 2019-02-26 16:52:00 Emergency Mohamud Gilman [facility] 1.2.840.114 350.1.13.10 4.2.7.2.686 [id number] [facility] Results Test Description Test Time Test Comments Results Result Co mments Source [facility] [id number] 22:03:00* Test Item Value Reference Range Interpretation Comme nts POCT PREG (test code = 1605) Negative On board controls acceptable with C Line (test code = 3574) No POCT PREG LOT # (test code = 3575) [id number] POCT PREG TEST DATE ( test code = 3576) 11/06/2024 Lab Interpretation (test cod e = 98447-9) Normal [facility] [id number] 18:57:06* Test Item Value Reference Range Interpretation Comme nts AMPHET (test code = 0143102632) Negative Negative TIGIST U (test code = 4159280728) Negative Negative BENZO U (test code = 0258339513) Negative Negative Cocaine Metabolite (test code = 3759817132) Negative Negative METHADONE (test code = 6824527314) Negative Negative OPIATES (test code = 6889921232) Negative Negative PCP (test code = 6637006508) Negative Negative THC (test code = 7263572610) Presumptive Positive Negative A GLENN (test code [...] legal testing). Lab Interpretation (test code = 93967-5) Abnormal [facility] [id number] 18:45:09 * Test Item Value Reference Range Interpretation Comme nts TSH (test code = 3304884569) See_Comment [Automated messa ge] The system which generated this result transmitted reference range: 0.45 - 4.70 mIU/L. The reference range was not used to interpret this result as normal/abnormal. Lab Interpretation (test code = 77082-2) Normal [facility]21-[facility]27 18:22:06* Test Item Value Reference Range Interpretation Comme nts ALCOHOL (test code = 1178216573) <10 mg/dL GLENN (test code = GLENN) <10 Btaukori00-097 Toxic>100 Depression of PIGMENT MAKING SUPERVISOR>400 Fatalities Reported [facility]2021-[facility]-27 18:22:06* Test Item Value Reference Range Interpretation Comme nts ACETAMINOP (test code = 1648104604) <10.0 10.0-30.0 L GLENN (test code = GLENN) Toxic: Greater baldemar n 200 ug/mL @ 4 hour post ingestion or greater than 50 ug/mL @ 12 hour post ingestion Lab Interpretation (test code = 36027-5) Abnormal [facility]-27 18:22:06* Test Item Value Reference Range Interpretation Comme nts SALICYLATE (test code = 6705953679) <10 mg/L GLENN (test code = GLENN) Therapeutic Range: ? Analgesic and Antipyretic Use ? 20-100 mg/L ? ? Anti-Inflammatory Use ? 100-250 mg/L Toxic Range: ? Greater than 300 mg/L [facility] (ALB, T.PRO, BILI T, BU/BC, ALT, AST, ALK PHOS)2020-10-24 18:14:16* Test Item Value Reference Range Interpretation Comme nts TOTAL BILI (test code = 3275552962) 1.0 mg/dL 0.1-1.1 BILI UNCON (test code = 8534408896) 0.8 mg/dL 0.1-1.1 BILI CONJ (test code = 6706227182) 0.0 mg/dL 0.0-0.3 T PROTEIN (test code = 2712382957) 8.3 g/dL 6.3-8.2 H ALBUMIN (test code = 4816951253) 5.2 g/dL 3.5-5.0 H ALK PHOS (test code = 0551024305) 49 U/L 34-122 ALTv (test code = 1742-6) 34 U/L 5-35 AST(SGOT) (test code = 7966621690) 42 U/L 13-40 H Lab Interpretation (test cod e = 14324-4) Abnormal [facility] Metabolic Panel (NA, K, CL, CO2, GLUCOSE, BUN, CREATININE, CA)2020-10-24 18:13:56* Test Item Value Reference Range Interpretation Comme nts NA (test code = 3762771954) 136 mmol/L 135-145 K (test code = 4670647776) 3.9 mmol/L 3.5-5.0 CL (test code = 3613050812) 99 mmol/L 98-108 CO2 TOTAL (test code = 8872664518) 26 mmol/L 23-31 AGAP (test code = 1240495122) 2-16 BUN (test code = 6545301857) 8 mg/dL 7-23 GLUCOSE (test code = 7470450010) 104 mg/dL 70-110 CREATININE (test code = 7165531938) 0.75 mg/dL 0.50-1.04 CALCIUM (test code = 8368573880) 10.5 mg/dL 8.6-10.6 eGFR (test code = 3722620153) mL/min/1.73m2 GLENN (test code = GLENN) Association [...] or urine or abnormalities in imaging tests). [facility] 17:58:39* Test Item Value Reference Range Interpretation Comme nts APPEARANCE (test code = 5967516314) Cloudy Clear A COLOR (test code = 2359990899) Em Yellow A PH (test code = 2931238131) 4.8-8.0 SP GRAVITY (test code = 5568915036) 1.003-1.030 GLU U QUAL (test code = 8241951327) Normal Normal BLOOD (test code = 4842912648) 1+ Negative A KETONES (test code = 6583781909) 5 mg/dL Negative A PROTEIN (test code = 2887-8) 100 mg/dL Negative A UROBILIN (test code = 0685159098) 2.0 mg/dL Normal A BILIRUBIN (test code = 3253053795) Negative Negative NITRITE (test code = 1153934988) Negative Negative LEUK JERROD (test code = 0719461840) Negative Negative RBC/HPF (test code = 0257857814) See_Comment H [Automated [employer]] The system which generated this result transmitted reference range: 0 - 3 HPF. The reference range was not used to interpret this result as normal/abnormal. WBC/HPF (test code = 5570721377) See_Comment H [[employer]] The system which generated this result transmitted reference range: 0 - 5 HPF. The reference range was not used to interpret this result as normal/abnormal. BACTERIA (test code = 9852853769) Few Negative A MUCOUS (test code = 8086162934) Marked Negative LPF A SQ EPITH (test code = 4043108852) HPF HYAL CAST (test code = 7901217495) See_Comment H [Automated messa ge] The system which generated this result transmitted reference range: <=2 LPF. The reference range was not used to interpret this result as normal/abnormal. Lab Interpretation (test code = 89176-9) Abnormal [facility] with [id number] 17:32:17* Test Item Value Reference Range Interpretation [...] 35.0 g/dL 31.6-35.1 RDW-SD (test code = 16444-7) 41.3 fL 39.0-49.9 RDW-CV (test code = 788-0) 12.6 % 12.0-15.5 PLT (test code = 777-3) See_Comment [Automated messa ge] The system which generated this result transmitted reference range: 166 - 358 10*3/?L. The reference range was not used to interpret this result as normal/abnormal. MPV (test code = 47194-2) 10.5 fL 9.5-12.9 IPF % (test code = 5397486323) 4.9 % 1.3-7.7 Platelet count measured by fluorescence method. NRBC/100 WBC (test code = 6836856772) See_Comment [Automated me ssage] The system which generated this result transmitted reference range: 0.0 - 10.0 /100 WBCs. The reference range was not used to interpret this result as normal/abnormal. NRBC x10^3 (test code = 2653463812) <0.01 See_Comment [Automated messa ge] The system which generated this result transmitted reference range: 10*3/?L. The reference range was not used to interpret this result as normal/abnormal. GRAN MAT (NEUT) % (test code = 770-8) 81.0 % IMM GRAN % (test code = 8807615866) 0.40 % LYMPH % (test code = 736-9) 9.9 % MONO % (test code = 5905-5) 8.3 % EOS % (test code = 713-8) 0.1 % BASO % (test code = 706-2) 0.3 % GRAN MAT x10^3(ANC) (test code = 6905143287) 9.45 10*3/uL 1.88-7.09 H IMM GRAN x10^3 (test code = 3733698435) 0.05 10*3/uL 0.00-0.06 LYMPH x10^3 (test code = 731-0) 1.16 10*3/uL 1.32-3.29 L MONO x10^3 (test code = 742-7) 0.97 10*3/uL 0.33-0.92 H EOS x10^3 (test code = 711-2) <0.03 0.03-0.39 L BASO x10^3 (test code = 704-7) 0.04 10*3/uL 0.01-0.07 Lab Interpretation (test code = 06491-3) Abnormal [facility] [id number] 17:15:00* Test Item Value Reference Range Interpretation Comme nts POCT PREG (test code = 1605) negative On board controls acceptable with C Line (test code = 3574) present POCT PREG LOT # (test code = 3575) [id number] POCT PREG TEST DATE ( test code = 3576) 05/29/2022 Lab Interpretation (test cod e = 05589-5) Normal [facility], THINPREP, [id number] 00:00:00 * Test Item Value Reference Range Interpretation Comme nts SOURCE: (test code = 8001) Cervical/Endocervical SLIDES: (test code = 8011) 1 LMP: (test code = 8021) 03/31/2017 SPECIMEN ADEQUACY: (test code = 83902) (NOTE) INTERPRETATION: (test code = 67241) NO EPITHELIAL ABNORMALITY SEE BELOW OTHER COMMENTS: (test code = 8081) (NOTE) CREPE BOX TENDER: (test code = 8101) SEDA BOONE(ASCP)IAC LOCATION: (test code = 15844) (NOTE) CPT: (test code = 8140) (NOTE) Jas Padilla LuisHPV HIGH RISK WITH GENOTYPE, [id number] 00:00:00* Test Item Value Reference Range Interpretation Comme nts HPV HIGH RISK INTERP (test c ode = 90878) NEGATIVE HPV 16 (test code = 17308) NEGATIVE HPV 18 (test code = 74153) NEGATIVE HPV, HR, OTHER GENOTYPES (te st code = 99239) NEGATIVE Jas Randy LuisGC AND CHLAMYDIA AMPLIFIED, [id number] 00:00:00* Test Item Value Reference Range Interpretation Comme nts GONORRHEA, TMA (test code = 83743) NEGATIVE CHLAMYDIA, TMA (test code = 70761) NEGATIVE Jas Padilla LuisHIV AB/AG COMBO RFLX [id number] 00:00:00* Test Item Value Reference Range Interpretation Comme nts HIV 1/2 4TH GEN, RFLX CONF ( test code = 3514) NON-REACTIVE Jas Padilla LuisHEPATITIS C REFLEX [id number] 00:00:00* Test Item Value Reference Range Interpretation Comme nts HEPATITIS C ANTIBODY (test c ode = 4675) NON-REACTIVE Jas Randy Luis"
[2024-07-01 19:48] LABS: Specific Gravity 1.006 (1.005-1.030)
[2024-07-01 19:48] LABS: Absolute Basophils 0.1 K/uL (0-0.5); Absolute Eosinophils 0.1 K/uL (0-0.5); Absolute Lymphocytes (CBC) 1.3 K/uL (0.7-4.9); Absolute Monocytes 0.7 K/uL (0.1-1.3); Absolute Neutrophil 5.8 K/uL (1.8-8.0); Eosinophils % 0.7 % (0-4.4); Hematocrit 41.7 % (36.0-45.0); Hemoglobin 14.4 g/dL (12.0-15.0); Lymphocytes % 16.5 % (15.3-44.8); MCH 31.2 pg (27.0-35.0); MCHC 34.5 g/dL (32.0-36.0); MCV 90.2 fL (80-100); Monocytes % 8.6 % (3.3-12.3); Neutrophils % 73.2 % (41.7-73.7); Nucleated Red Blood Cells % 0.1 % (0-0); Platelets 414 thou/uL (152-406); RBC Red Blood Cell Count 4.62 M/uL (3.86-4.86); Red Cell Distribution Width 13.5 % (12.1-15.2)
[2024-07-01 19:49] LABS: Specific Gravity 1.006 (1.005-1.030); Sqamous Epithelial <5 /HPF (None Seen); Urine Bacteria <20 /HPF (<20); Urine Bilirubin NEGATIVE (Negative); Urine Blood Negative (Negative); Urine Clarity Extremely Turbid (Clear); Urine Color Colorless (Yellow); Urine Crystals Unidentified Few /HPF (None Seen); Urine Culture Reflex Order REFLEXED; Urine Glucose NEGATIVE (Negative); Urine Ketones NEGATIVE (Negative); Urine Microscopic Reflex YN ORDER UMIC; Urine Mucus Slight /HPF (None Seen); Urine Nitrite NEGATIVE (Negative); Urine Protein NEGATIVE (Negative); Urine RBC <5 /HPF (None Seen); Urine Urobilinogen Normal (Normal); Urine WBC 20-50 /HPF (<5); Urine WBC Clump Occasional /HPF (None Seen); Urine Yeast (Budding) Occasional /HPF (None Seen)
[2024-07-01 19:53] LABS: PT Prothrombin Time 11.9 SECONDS (9.4-12.5); PTT, Activated Partial Thromb 33.7 SECONDS (24.3-36.9); Protime INR 1.06
[2024-07-01 19:59] LABS: Barbiturates NEGATIVE (NEGATIVE); Benzodiazepines NEGATIVE (NEGATIVE); Cocaine NEGATIVE (NEGATIVE); METHAMPHETAM NEGATIVE (NEGATIVE); Methadone NEGATIVE (NEGATIVE); Opiates NEGATIVE (NEGATIVE); Phencyclidine NEGATIVE (NEGATIVE); THC Cannibis POSITIVE (NEGATIVE)
[2024-07-01 20:08] LABS: ALT/SGPT 17 U/L (13-56); AST/SGOT 17 U/L (15-37); Albumin/Globulin Ratio 0.9 (1.1-1.8); Alkaline Phosphatase 44 U/L (45-117); Anion Gap 11.4 mEq/L (5.0-15.0); BUN Blood Urea Nitrogen 8 mg/dL (7-18); Bicarbonate 21 mEq/L (21-32); Bilirubin Total 0.3 mg/dL (0.2-1.0); Globulin 4.7 g/dL (2.3-3.5); Glomerular Filtration Rate 91 ml/min (=/>90); Glucose Level 78 mg/dL (74-106); Potassium 3.4 mEq/L (3.5-5.1); Protein, Total 8.7 g/dL (6.4-8.2); Sodium Level 136 mEq/L (136-145)
[2024-07-01 20:14] LABS: Bilirubin Direct < 0.2 mg/dL (0-0.2); Bilirubin Indirect, Calculated 0.1 mg/dL (0.2-0.8)
[2024-07-01] MEDS ORDERED: LORAZEPAM 0.5 MG TABLET ONE (20:25)
[2024-07-01] MEDS ORDERED: CEFTRIAXONE 1000 MG/VIAL ONE (20:25)
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
[2024-07-02] MEDS ORDERED: ZIPRASIDONE MESYLA 20 MG/VIAL IM ONE
[2024-07-02] MEDS ORDERED: WATER FOR INJ,STERILE 10 ML ONE (00:01)
[2024-07-02 08:56] VITALS: BP 150/90; TEMP 97.8; O2SAT 98
--- NOTE | 2024-07-02 12:41 | EKG ---
Test Date: 2024-07-01 Test Time: 20:32:40 Bankruptcy Manager: JOSE MEASUREMENT RESULTS: Intervals: Rate: 98 AR: 120 QRSD: 80 QT: 360 QTc: 459 [place]: P: 77 AR: 120 QRS: 55 T: 67 INTERPRETIVE STATEMENTS: Normal sinus rhythm Nonspecific ST and T wave abnormality Abnormal ECG Compared to ECG 01/07/2022 13:39:51 ST (T wave) deviation now present Sinus bradycardia no longer present Electronically Signed On 07-02-24 12:39:24 [employer] by Trevor Mccauley
== END 2024-07-02 01:13 ==
LOC: ER 18:54
DX: R45.850 Homicidal ideations (principal); Z91.199 Patient's noncompliance with other medical treatment and regimen due to unspecified reason; F20.89 Other schizophrenia; F31.89 Other bipolar disorder
CPT/HCPCS: 36415; 80048; 80076; 80143; 80179; 80307; 81001; 81025; 82077; 85025; 85610; 85730; 87086; 87088; 93005; 96374; 99285; J0696; J3486